=== PATIENT | female | born 1995 | race African-American/Black ===

== ENCOUNTER 2016-08-21 06:09 | Emergency (ER) | payer OTHER, SELFPAY ==
[~2016-08-21 06:09] MED LIST: LOVE1INJ SC; NO HOME MEDS; TYLE325T5 PO; ZONE25CA5 PO
--- NOTE | 2016-08-21 08:35 | EDDOCDS ---
Nurse's Notes [facility] Name: Chica Alcaraz Age: 20 yrs Sex: Female : 1995 Arrival Date: 08/21/2016 Time: 06:09 Bed I3 / M3 Private MD: Diagnosis: Vaginitis, vulvitis and vulvovaginitis in diseases classified elsewhere-bacterial vaginosis Presentation: 08/21 06:16 Presenting complaint: Patient states: frequent urination, white discharge with odor and kc3 itching x 5 days. Adult Sepsis Screening: The patient does not have new or worsening altered mentation. Patient's respiratory rate is less than 22. Systolic blood pressure is greater than 100. Patient has a qSOFA score of 0- Negative Sepsis Screen. Suicide/Homicide risk assessment- the patient denies having any suicidal and/or homicidal ideations and does not present with any other emotional, behavioral or mental health complaints. Status: The patient is a dependent. Transition of care: patient was not received from another setting of care. 06:16 Acuity: AJITH Level 4 kc3 06:16 Method Of Arrival: Walkin/Carried/Asstd kc3 Triage Assessment: 06:18 General: Appears in no apparent distress, comfortable. Pain: Denies pain. HIV screening kc3 NA for this visit Offered previously. : Reports discharge white, urinary frequency vaginal itching. 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 Oral 1 tab once daily 2. 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 No barriers to communication noted, The patient speaks fluent Lao, Speaks appropriately for age. - Family history: Not pertinent. - : The pt / caregiver states he / she is not on anticoagulants. Home medication list is obtained from the patient. - Exposure Risk Screening:: None identified. Screenin:38 Screening information is obtained from the patient. Primary language is Lao. Fall jam1 risk: No risks identified. Assistance ADL's: requires no assistance with activities of daily living. Abuse/DV Screen: The patient / caregiver reports he/she is: not in a situation that causes fear, pain or injury. Nutritional screening: No deficits noted. Exposure Risk Screening: None identified. Advance Directives: Currently, there is no health care proxy. There is no active DNR order. There is no living will. There is no Power of Rn Internship. Advance directive information has not previously been placed in an [facility] medical record. Further advance directive information is declined. home support is adequate. Assessment: 07:40 General: Appears in no apparent distress, well developed, well nourished, well groomed, dls Behavior is cooperative. Awake, alert, oriented. Skin warm and dry. Moves all extremities. Bilateral breath sounds clear. Respirations unlabored. Abdomen soft, non-tender. No apparent distress. The patient / caregiver is instructed regarding the plan of care and ED course. Vital Signs: 06:15 BP 134 / 76; Pulse 95; Resp 18; Temp 99.1(O); Pulse Ox 98% on R/A; Weight 74.84 kg; 3 Height 5 ft. 8 in. (172.72 cm); Pain 0/10; 08:29 BP 140 / 84; Pulse 74; Resp 18; Temp 98.7; Pulse Ox 98% ; Pain 0/10; jam1 06:15 Body Mass Index 25.09 (74.84 kg, 172.72 cm) [facility] Vitals: 06:15 Log In Time: August 21, 2016 at 06:15. [facility] ED Course: 06:12 Patient visited by Navya Magana Reg. hs2 06:12 Patient moved to Waiting hs2 06:18 Triage Initiated kc3 06:34 Patient moved to MTA Wait kc3 07:07 Patient moved to I3 / M3 dls 07:09 Prieto Ventura PA-C is PHCP. ar2 07:10 Steve Diamond MD is Attending Physician. ar2 07:10 Patient visited by Prieto Ventura PA-C. ar2 07:38 Pt greeted and oriented to ED. Patient advised of names of staff involved in care, jam1 location of call sena, wait times and NPO status. Patient has correct armband on for positive identification. Placed in gown. Bed in low position. Call light in reach. Side rails up X 1. Door closed. 08:16 [facility] [place] Agreement was scanned into [employer] and attached to record. mm15 08:26 Patient visited by Caroline Arambula RN. dls 08:26 Mar[facility] [place] Referral Physician. ar2 08:32 No IV's were initiated during this patient's visit. No procedures done that require dls assistance. Point of Care Testing: Urine : 07:24 hCG Reading: Negative; Control Reading: Negative; jam1 Ranges: Order Results: Lab Order: UA; SPEC'M 08/21/16 07:34 Test: APPEARANCE, URINE; Value: CLEAR; Range: CLEAR; Status: F Test: COLOR, URINE; Value: YELLOW; Range: YELLOW; Status: F Test: PH,URINE; Value: 6.0; Range: 5.0-9.0; Units: UNITS; Status: F Test: SPECIFIC GRAVITY URINE AUTO; Value: 1.014; Range: 1.002-1.035; Status: F Test: PROTEIN, URINE AUTO; Value: NEGATIVE; Range: NEGATIVE; Units: mg/dL; Status: F Test: GLUCOSE, URINE (UA) AUTO; Value: NEGATIVE; Range: NEGATIVE; Units: mg/dL; Status: F Test: KETONE, URINE AUTO; Value: NEGATIVE; Range: NEGATIVE; Units: mg/dL; Status: F Test: UROBILINOGEN, URINE AUTO; Value: 0.2; Range: 0.0-2.0; Units: mg/dL; Status: F Test: BILIRUBIN, URINE AUTO; Value: NEGATIVE; Range: NEGATIVE; Status: F Test: NITRITE, URINE AUTO; Value: NEGATIVE; Range: NEGATIVE; Status: F Test: LEUKOCYTE ESTERASE, URINE AUTO; Value: NEGATIVE; Range: NEGATIVE; Status: F Test: BLOOD, URINE BLOOD; Value: NEGATIVE; Range: NEGATIVE; Status: F Test: WBC, URINE AUTO; Value: 15; Range: 0-3; Abnormal: Above high normal; Units: /HPF; Status: F Test: RBC, URINE AUTO; Value: 2; Range: 0-3; Units: /HPF; Status: F Test: BACTERIA, URINE AUTO; Value: NEGATIVE; Range: NEGATIVE; Status: F Test: SQUAMOUS EPITHELIAL CELL UR AU; Value: 2; Range: 0-6; Units: /HPF; Status: F Test: MUCUS, URINE; Value: SMALL; Range: NEGATIVE; Status: F Test: HYALINE CAST, URINE AUTO; Value: 0; Range: 0-1; Units: /LPF; Status: F Lab Order: Wet Prep; SPEC'M 08/21/16 07:34 Test: WET PREP; Value: WET PREP RESULT; Status: F Test: WET PREP; Value: MANY EPITHELIAL CELLS PRESENT; Status: F Test: WET PREP; Value: MANY RBC; Status: F Test: WET PREP; Value: FEW WBC; Status: F Test: WET PREP; Value: FEW CLUE CELLS PRESENT; Status: F Outcome: 08:26 Discharge ordered by Provider. ar2 08:32 The following High Risk Discharge criteria are identified: None. Discharged to home dls ambulatory, with family. Condition: stable. Discharge instructions given to patient, Instructed on discharge instructions, follow up and referral plans. medication usage, Demonstrated understanding of instructions, medications, Pt was receptive of discharge instructions/ teaching. Prescriptions given X 1. No special radiology studies were completed. 08:32 Discharge Assessment: Patient awake, alert and oriented x 3. No cognitive and/or dls functional deficits noted. Patient verbalized understanding of disposition instructions. patient administered narcotics - no. The following High Risk Discharge criteria are identified: None. Discharged to home ambulatory. Property sent home with patient. 08:33 Patient left the ED. dls Signatures: Caroline Arambula, RN RN Priti Lambert, RETAIL MERCHANDISER RETAIL MERCHANDISER jam1 Prieto Ventura PA-C PA-C ar2 Keon Hazel mm15 Chelsea De La Torre RN RN kc3 Navya Magana, Reg Reg hs2 MTDD
--- NOTE | 2016-08-21 08:35 | EDDOCDS ---
Physician Documentation [facility] Name: Chica Alcaraz Age: 20 yrs Sex: Female : 1995 Arrival Date: 08/21/2016 Time: 06:09 Bed I3 / M3 Private MD: Disposition: 08/21/16 08:26 Discharged to Home/Self Care. Impression: Vaginitis, vulvitis and vulvovaginitis in diseases classified elsewhere - bacterial vaginosis. - Condition is Stable. - Discharge Instructions: Bacterial Vaginosis. - Prescriptions for Flagyl 500 mg Oral Tablet - take 1 tablet by ORAL route every 12 hours for 7 days; 14 tablet. - Medication Reconciliation, Local Pharmacy Hours form. - Follow up: ALESSIA Cunningham; When: 4 - 5 days; Reason: Recheck today's complaints, Continuance of care. - Problem is new. - Symptoms are unchanged. Historical: - Allergies: Ibuprofen (Upset stomach); - Home Meds: 1. Oral 1 tab once daily 2. 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 No barriers to communication noted, The patient speaks fluent Vietnamese, Speaks appropriately for age. - Family history: Not pertinent. - : The pt / caregiver states he / she is not on anticoagulants. Home medication list is obtained from the patient. - Exposure Risk Screening:: None identified. 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 8 in. (172.72 cm); Pain 0/10; 08:29 BP 140 / 84; Pulse 74; Resp 18; Temp 98.7; Pulse Ox 98% ; Pain 0/10; jam1 06:15 Body Mass Index 25.09 (74.84 kg, 172.72 cm) 3 MDM: 07:10 UCG by Nursing ordered. ar2 07:12 UA Ordered. EDMS 07:12 Urine Culture Ordered. EDMS 07:14 Set up pelvic ordered. ar2 07:15 Wet Prep Ordered. EDMS 07:15 GC & Chlamydia Amplification Ordered. EDMS 07:52 Financial registration complete. mm15 08:16 COUNTS INCLUDE 234 BEDS AT THE [facility] Payment Agreement was scanned into [employer] and attached to record. mm15 08:17 UA Reviewed. ar2 08:17 Wet Prep Reviewed. ar2 Point of Care Testing: Urine : 07:24 hCG Reading: Negative; Control Reading: Negative; jam1 Ranges: Signatures: Dispatcher [employer] Caroline Brown, RN RN dls Prieto Ventura, SKYE PA-C ar2 Keon Hazel mm15 Chelsea De La Torre,RN RN kc3 The chart was reviewed and I authenticate all verbal orders and agree with the evaluation and treatment provided.Attachments: 08:16 COUNTS INCLUDE 234 BEDS AT THE [facility] Payment Agreement mm15 MTDD
--- NOTE | 2016-08-23 09:35 | EDDOCDS ---
Physician Documentation [facility] Name: Chica Alcaraz Age: 20 yrs Sex: Female : 1995 Arrival Date: 08/21/2016 Time: 06:09 Bed I3 / M3 Private MD: Disposition: 08/21/16 08:26 Discharged to Home/Self Care. Impression: Vaginitis, vulvitis and vulvovaginitis in diseases classified elsewhere - bacterial vaginosis. - Condition is Stable. - Discharge Instructions: Bacterial Vaginosis. - Prescriptions for Flagyl 500 mg Oral Tablet - take 1 tablet by ORAL route every 12 hours for 7 days; 14 tablet. - Medication Reconciliation, Local Pharmacy Hours form. - Follow up: ALESSIA Cunningham; When: 4 - 5 days; Reason: Recheck today's complaints, Continuance of care. - Problem is new. - Symptoms are unchanged. Historical: - Allergies: Ibuprofen (Upset stomach); - Home Meds: 1. Oral 1 tab once daily 2. 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 No barriers to communication noted, The patient speaks fluent Greek, Speaks appropriately for age. - Family history: Not pertinent. - : The pt / caregiver states he / she is not on anticoagulants. Home medication list is obtained from the patient. - Exposure Risk Screening:: None identified. 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 8 in. (172.72 cm); Pain 0/10; 08:29 BP 140 / 84; Pulse 74; Resp 18; Temp 98.7; Pulse Ox 98% ; Pain 0/10; jam1 06:15 Body Mass Index 25.09 (74.84 kg, 172.72 cm) 3 MDM: 07:10 UCG by Nursing ordered. ar2 07:12 UA Ordered. EDMS 07:12 Urine Culture Ordered. EDMS 07:14 Set up pelvic ordered. ar2 07:15 Wet Prep Ordered. EDMS 07:15 GC & Chlamydia Amplification Ordered. EDMS 07:52 Financial registration complete. mm15 08:16 [facility] Payment Agreement was scanned into [employer] and attached to record. mm15 08:17 UA Reviewed. ar2 08:17 Wet Prep Reviewed. ar2 Point of Care Testing: Urine : 07:24 hCG Reading: Negative; Control Reading: Negative; jam1 Ranges: Signatures: Dispatcher [employer] Caroline Brown, RN RN dls Prieto Ventura PA-C PA-C ar2 Keon Hazel mm15 Chelsea De La Torre,RN RN kc3 The chart was reviewed and I authenticate all verbal orders and agree with the evaluation and treatment provided.Attachments: 08:16 [facility] Payment Agreement mm15 Chart Complete MTDD
--- NOTE | 2016-08-23 09:35 | EDDOCDS ---
Nurse's Notes [facility] Name: Chica Alcaraz Age: 20 yrs Sex: Female : 1995 Arrival Date: 08/21/2016 Time: 06:09 Bed I3 / M3 Private MD: Diagnosis: Vaginitis, vulvitis and vulvovaginitis in diseases classified elsewhere-bacterial vaginosis Presentation: 08/21 06:16 Presenting complaint: Patient states: frequent urination, white discharge with odor and kc3 itching x 5 days. Adult Sepsis Screening: The patient does not have new or worsening altered mentation. Patient's respiratory rate is less than 22. Systolic blood pressure is greater than 100. Patient has a qSOFA score of 0- Negative Sepsis Screen. Suicide/Homicide risk assessment- the patient denies having any suicidal and/or homicidal ideations and does not present with any other emotional, behavioral or mental health complaints. Status: The patient is a dependent. Transition of care: patient was not received from another setting of care. 06:16 Acuity: AJITH Level 4 kc3 06:16 Method Of Arrival: Walkin/Carried/Asstd kc3 Triage Assessment: 06:18 General: Appears in no apparent distress, comfortable. Pain: Denies pain. HIV screening kc3 NA for this visit Offered previously. : Reports discharge white, urinary frequency vaginal itching. 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 Oral 1 tab once daily 2. 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 No barriers to communication noted, The patient speaks fluent Lithuanian, Speaks appropriately for age. - Family history: Not pertinent. - : The pt / caregiver states he / she is not on anticoagulants. Home medication list is obtained from the patient. - Exposure Risk Screening:: None identified. Screenin:38 Screening information is obtained from the patient. Primary language is Lithuanian. Fall jam1 risk: No risks identified. Assistance ADL's: requires no assistance with activities of daily living. Abuse/DV Screen: The patient / caregiver reports he/she is: not in a situation that causes fear, pain or injury. Nutritional screening: No deficits noted. Exposure Risk Screening: None identified. Advance Directives: Currently, there is no health care proxy. There is no active DNR order. There is no living will. There is no Power of Manager Android. Advance directive information has not previously been placed in an [facility] medical record. Further advance directive information is declined. home support is adequate. Assessment: 07:40 General: Appears in no apparent distress, well developed, well nourished, well groomed, dls Behavior is cooperative. Awake, alert, oriented. Skin warm and dry. Moves all extremities. Bilateral breath sounds clear. Respirations unlabored. Abdomen soft, non-tender. No apparent distress. The patient / caregiver is instructed regarding the plan of care and ED course. Vital Signs: 06:15 BP 134 / 76; Pulse 95; Resp 18; Temp 99.1(O); Pulse Ox 98% on R/A; Weight 74.84 kg; 3 Height 5 ft. 8 in. (172.72 cm); Pain 0/10; 08:29 BP 140 / 84; Pulse 74; Resp 18; Temp 98.7; Pulse Ox 98% ; Pain 0/10; jam1 06:15 Body Mass Index 25.09 (74.84 kg, 172.72 cm) [facility] Vitals: 06:15 Log In Time: August 21, 2016 at 06:15. [facility] ED Course: 06:12 Patient visited by Navya Magana Reg. hs2 06:12 Patient moved to Waiting hs2 06:18 Triage Initiated kc3 06:34 Patient moved to MTA Wait kc3 07:07 Patient moved to I3 / M3 dls 07:09 Prieto Ventura PA-C is PHCP. ar2 07:10 Steve Diamond MD is Attending Physician. ar2 07:10 Patient visited by Prieto Ventura PA-C. ar2 07:38 Pt greeted and oriented to ED. Patient advised of names of staff involved in care, jam1 location of call sena, wait times and NPO status. Patient has correct armband on for positive identification. Placed in gown. Bed in low position. Call light in reach. Side rails up X 1. Door closed. 08:16 [facility] [place] was scanned into [employer] and attached to record. mm15 08:26 Patient visited by Caroline Arambula RN. dls 08:26 Marisa [facility] is Referral Physician. ar2 08:32 No IV's were initiated during this patient's visit. No procedures done that require dls assistance. Point of Care Testing: Urine : 07:24 hCG Reading: Negative; Control Reading: Negative; jam1 Ranges: Order Results: Lab Order: UA; SPEC'M 08/21/16 07:34 Test: APPEARANCE, URINE; Value: CLEAR; Range: CLEAR; Status: F Test: COLOR, URINE; Value: YELLOW; Range: YELLOW; Status: F Test: PH,URINE; Value: 6.0; Range: 5.0-9.0; Units: UNITS; Status: F Test: SPECIFIC GRAVITY URINE AUTO; Value: 1.014; Range: 1.002-1.035; Status: F Test: PROTEIN, URINE AUTO; Value: NEGATIVE; Range: NEGATIVE; Units: mg/dL; Status: F Test: GLUCOSE, URINE (UA) AUTO; Value: NEGATIVE; Range: NEGATIVE; Units: mg/dL; Status: F Test: KETONE, URINE AUTO; Value: NEGATIVE; Range: NEGATIVE; Units: mg/dL; Status: F Test: UROBILINOGEN, URINE AUTO; Value: 0.2; Range: 0.0-2.0; Units: mg/dL; Status: F Test: BILIRUBIN, URINE AUTO; Value: NEGATIVE; Range: NEGATIVE; Status: F Test: NITRITE, URINE AUTO; Value: NEGATIVE; Range: NEGATIVE; Status: F Test: LEUKOCYTE ESTERASE, URINE AUTO; Value: NEGATIVE; Range: NEGATIVE; Status: F Test: BLOOD, URINE BLOOD; Value: NEGATIVE; Range: NEGATIVE; Status: F Test: WBC, URINE AUTO; Value: 15; Range: 0-3; Abnormal: Above high normal; Units: /HPF; Status: F Test: RBC, URINE AUTO; Value: 2; Range: 0-3; Units: /HPF; Status: F Test: BACTERIA, URINE AUTO; Value: NEGATIVE; Range: NEGATIVE; Status: F Test: SQUAMOUS EPITHELIAL CELL UR AU; Value: 2; Range: 0-6; Units: /HPF; Status: F Test: MUCUS, URINE; Value: SMALL; Range: NEGATIVE; Status: F Test: HYALINE CAST, URINE AUTO; Value: 0; Range: 0-1; Units: /LPF; Status: F Lab Order: Urine Culture; SPEC'M 08/21/16 07:34 Test: URINE CULTURE; Value: <EXTERNAL COMMENT eCWMed> FULL REPORT IN LAB NOTES (eCW and Medent).; Status: F Test: URINE CULTURE; Value: ORGANISM 1: STAPH.AUREUS METHICILLIN RESIS; Status: F Test: URINE CULTURE; Value: STAPH.AUREUS METHICILLIN RESIS; Status: F Test: URINE CULTURE; Value: COLONY COUNT CFU/ml 30,000; Status: F Test: URINE CULTURE; Value: GRAM POS SENSI - VITEK 67; Status: F Test: URINE CULTURE; Value: Method: VIT2; Status: F Test: URINE CULTURE; Value: TETRACYCLINE <=1 S; Status: F Test: URINE CULTURE; Value: PENICILLIN G >=0.5 R; Status: F Test: URINE CULTURE; Value: TRIMETHOPRIM/SULFAMETHOXAZOLE <=10 S; Status: F Test: URINE CULTURE; Value: ERYTHROMYCIN >=8 R; Status: F Test: URINE CULTURE; Value: GENTAMICIN <=0.5 S; Status: F Test: URINE CULTURE; Value: CLINDAMYCIN <=0.25 S; Status: F Test: URINE CULTURE; Value: NITROFURANTOIN <=16 S; Status: F Test: URINE CULTURE; Value: OXACILLIN >=4 R; Status: F Test: URINE CULTURE; Value: VANCOMYCIN <=0.5 S; Status: F Test: URINE CULTURE; Value: LINEZOLID (ZYVOX) 2 S; Status: F Lab Order: Wet Prep; SPEC'M 08/21/16 07:34 Test: WET PREP; Value: WET PREP RESULT; Status: F Test: WET PREP; Value: MANY EPITHELIAL CELLS PRESENT; Status: F Test: WET PREP; Value: MANY RBC; Status: F Test: WET PREP; Value: FEW WBC; Status: F Test: WET PREP; Value: FEW CLUE CELLS PRESENT; Status: F Lab Order: GC & Chlamydia Amplification; SPEC'M 08/21/16 07:34 Test: CHLAMYDIA DNA AMPLIFICATION; Value: POSITIVE; Range: NEGATIVE; Abnormal: Above high normal; Status: F Test: GC DNA AMPLIFICATION; Value: NEGATIVE; Range: NEGATIVE; Status: F Outcome: 08:26 Discharge ordered by Provider. ar2 08:32 The following High Risk Discharge criteria are identified: None. Discharged to home dls ambulatory, with family. Condition: stable. Discharge instructions given to patient, Instructed on discharge instructions, follow up and referral plans. medication usage, Demonstrated understanding of instructions, medications, Pt was receptive of discharge instructions/ teaching. Prescriptions given X 1. No special radiology studies were completed. 08:32 Discharge Assessment: Patient awake, alert and oriented x 3. No cognitive and/or dls functional deficits noted. Patient verbalized understanding of disposition instructions. patient administered narcotics - no. The following High Risk Discharge criteria are identified: None. Discharged to home ambulatory. Property sent home with patient. 08:33 Patient left the ED. dls 14:32 Lab/X-ray follow up: Call received from [facility] that patient is positive for Chlamydia. sal Spoke with provider, Emma Ventura and Rx for Zithromax 1 Gm. po to be called to patient's pharmacy. Patient contacted and requests Brii ramires Boyce - Rx called in and [facility] notified which pharmacy . Signatures: Brenna De Los Santos, RN RN Caroline Grady RN RN Priti Lambert, SIDE DOOR WORKER SIDE DOOR WORKER jam1 Prieto Ventura, PA-C PA-C ar2 Keon Hazel mm15 Chelsea De La TorreRN RN kc3 Navya Magana, Reg Reg hs2 Chart Complete MTDD
--- NOTE | 2016-08-23 09:35 | EDDOCDS ---
Physician Documentation [facility] Name: Chica Alcaraz Age: 20 yrs Sex: Female : 1995 Arrival Date: 08/21/2016 Time: 06:09 Bed I3 / M3 Private MD: Disposition: 08/21/16 08:26 Discharged to Home/Self Care. Impression: Vaginitis, vulvitis and vulvovaginitis in diseases classified elsewhere - bacterial vaginosis. - Condition is Stable. - Discharge Instructions: Bacterial Vaginosis. - Prescriptions for Flagyl 500 mg Oral Tablet - take 1 tablet by ORAL route every 12 hours for 7 days; 14 tablet. - Medication Reconciliation, Local Pharmacy Hours form. - Follow up: ALESSIA Cunningham; When: 4 - 5 days; Reason: Recheck today's complaints, Continuance of care. - Problem is new. - Symptoms are unchanged. Historical: - Allergies: Ibuprofen (Upset stomach); - Home Meds: 1. Oral 1 tab once daily 2. 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 No barriers to communication noted, The patient speaks fluent Macedonian, Speaks appropriately for age. - Family history: Not pertinent. - : The pt / caregiver states he / she is not on anticoagulants. Home medication list is obtained from the patient. - Exposure Risk Screening:: None identified. 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 8 in. (172.72 cm); Pain 0/10; 08:29 BP 140 / 84; Pulse 74; Resp 18; Temp 98.7; Pulse Ox 98% ; Pain 0/10; jam1 06:15 Body Mass Index 25.09 (74.84 kg, 172.72 cm) 3 MDM: 07:10 UCG by Nursing ordered. ar2 07:12 UA Ordered. EDMS 07:12 Urine Culture Ordered. EDMS 07:14 Set up pelvic ordered. ar2 07:15 Wet Prep Ordered. EDMS 07:15 GC & Chlamydia Amplification Ordered. EDMS 07:52 Financial registration complete. mm15 08:16 [facility] Payment Agreement was scanned into [employer] and attached to record. mm15 08:17 UA Reviewed. ar2 08:17 Wet Prep Reviewed. ar2 Point of Care Testing: Urine : 07:24 hCG Reading: Negative; Control Reading: Negative; jam1 Ranges: Signatures: Dispatcher [employer] Caroline Brown, RN RN dls Prieto Ventura PA-C PA-C ar2 Keon Hazel mm15 Chelsea De La Torre,RN RN kc3 The chart was reviewed and I authenticate all verbal orders and agree with the evaluation and treatment provided.Attachments: 08:16 [facility] Payment Agreement mm15 Chart Complete MTDD
--- NOTE | 2016-08-24 10:23 | EDDOCDS ---
Physician Documentation [facility] Name: Chica Alcaraz Age: 20 yrs Sex: Female : 1995 Arrival Date: 08/21/2016 Time: 06:09 Bed I3 / M3 Private MD: Disposition: 08/21/16 08:26 Discharged to Home/Self Care. Impression: Vaginitis, vulvitis and vulvovaginitis in diseases classified elsewhere - bacterial vaginosis. - Condition is Stable. - Discharge Instructions: Bacterial Vaginosis. - Prescriptions for Flagyl 500 mg Oral Tablet - take 1 tablet by ORAL route every 12 hours for 7 days; 14 tablet. - Medication Reconciliation, Local Pharmacy Hours form. - Follow up: ALESSIA Cunningham; When: 4 - 5 days; Reason: Recheck today's complaints, Continuance of care. - Problem is new. - Symptoms are unchanged. Historical: - Allergies: Ibuprofen (Upset stomach); - Home Meds: 1. Oral 1 tab once daily 2. 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 No barriers to communication noted, The patient speaks fluent Kyrgyz, Speaks appropriately for age. - Family history: Not pertinent. - : The pt / caregiver states he / she is not on anticoagulants. Home medication list is obtained from the patient. - Exposure Risk Screening:: None identified. 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 8 in. (172.72 cm); Pain 0/10; 08:29 BP 140 / 84; Pulse 74; Resp 18; Temp 98.7; Pulse Ox 98% ; Pain 0/10; jam1 06:15 Body Mass Index 25.09 (74.84 kg, 172.72 cm) 3 MDM: 07:10 UCG by Nursing ordered. ar2 07:12 UA Ordered. EDMS 07:12 Urine Culture Ordered. EDMS 07:14 Set up pelvic ordered. ar2 07:15 Wet Prep Ordered. EDMS 07:15 GC & Chlamydia Amplification Ordered. EDMS 07:52 Financial registration complete. mm15 08:16 [facility] Payment Agreement was scanned into [employer] and attached to record. mm15 08:17 UA Reviewed. ar2 08:17 Wet Prep Reviewed. ar2 Point of Care Testing: Urine : 07:24 hCG Reading: Negative; Control Reading: Negative; jam1 Ranges: Signatures: Dispatcher [employer] Caroline Brown, RN RN dls Prieto Ventura, SKYE PA-C ar2 Keon Hazel mm15 Chelsea De La Torre,RN RN kc3 The chart was reviewed and I authenticate all verbal orders and agree with the evaluation and treatment provided.Attachments: 08:16 [facility] Payment Agreement mm15 MTDD
--- NOTE | 2016-08-24 10:23 | EDDOCDS ---
Physician Documentation [facility] Name: Chica Alcaraz Age: 20 yrs Sex: Female : 1995 Arrival Date: 08/21/2016 Time: 06:09 Bed I3 / M3 Private MD: Disposition: 08/21/16 08:26 Discharged to Home/Self Care. Impression: Vaginitis, vulvitis and vulvovaginitis in diseases classified elsewhere - bacterial vaginosis. - Condition is Stable. - Discharge Instructions: Bacterial Vaginosis. - Prescriptions for Flagyl 500 mg Oral Tablet - take 1 tablet by ORAL route every 12 hours for 7 days; 14 tablet. - Medication Reconciliation, Local Pharmacy Hours form. - Follow up: ALESSIA Cunningham; When: 4 - 5 days; Reason: Recheck today's complaints, Continuance of care. - Problem is new. - Symptoms are unchanged. Historical: - Allergies: Ibuprofen (Upset stomach); - Home Meds: 1. Oral 1 tab once daily 2. 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 No barriers to communication noted, The patient speaks fluent Pashto, Speaks appropriately for age. - Family history: Not pertinent. - : The pt / caregiver states he / she is not on anticoagulants. Home medication list is obtained from the patient. - Exposure Risk Screening:: None identified. 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 8 in. (172.72 cm); Pain 0/10; 08:29 BP 140 / 84; Pulse 74; Resp 18; Temp 98.7; Pulse Ox 98% ; Pain 0/10; jam1 06:15 Body Mass Index 25.09 (74.84 kg, 172.72 cm) 3 MDM: 07:10 UCG by Nursing ordered. ar2 07:12 UA Ordered. EDMS 07:12 Urine Culture Ordered. EDMS 07:14 Set up pelvic ordered. ar2 07:15 Wet Prep Ordered. EDMS 07:15 GC & Chlamydia Amplification Ordered. EDMS 07:52 Financial registration complete. mm15 08:16 [facility] Payment Agreement was scanned into [email or web address] and attached to record. mm15 08:17 UA Reviewed. ar2 08:17 Wet Prep Reviewed. ar2 Point of Care Testing: Urine : 07:24 hCG Reading: Negative; Control Reading: Negative; jam1 Ranges: Signatures: Dispatcher [employer] Caroline Brown, RN RN dls Prieto Ventura PA-C PA-C ar2 Keon Hazel mm15 Chelsea De La Torre,RN RN kc3 The chart was reviewed and I authenticate all verbal orders and agree with the evaluation and treatment provided.Attachments: 08:16 [facility] Payment Agreement mm15 Chart Complete MTDD
--- NOTE | 2016-08-24 10:23 | EDDOCDS ---
Nurse's Notes [facility] Name: Chica Alcaraz Age: 20 yrs Sex: Female : 1995 Arrival Date: 08/21/2016 Time: 06:09 Bed I3 / M3 Private MD: Diagnosis: Vaginitis, vulvitis and vulvovaginitis in diseases classified elsewhere-bacterial vaginosis Presentation: 08/21 06:16 Presenting complaint: Patient states: frequent urination, white discharge with odor and kc3 itching x 5 days. Adult Sepsis Screening: The patient does not have new or worsening altered mentation. Patient's respiratory rate is less than 22. Systolic blood pressure is greater than 100. Patient has a qSOFA score of 0- Negative Sepsis Screen. Suicide/Homicide risk assessment- the patient denies having any suicidal and/or homicidal ideations and does not present with any other emotional, behavioral or mental health complaints. Status: The patient is a dependent. Transition of care: patient was not received from another setting of care. 06:16 Acuity: AJITH Level 4 kc3 06:16 Method Of Arrival: Walkin/Carried/Asstd kc3 Triage Assessment: 06:18 General: Appears in no apparent distress, comfortable. Pain: Denies pain. HIV screening kc3 NA for this visit Offered previously. : Reports discharge white, urinary frequency vaginal itching. [facility]: 06:15 LMP 06/23/2016 kc3 Historical: - Allergies: Ibuprofen (Upset stomach); - Home Meds: 1. Oral 1 tab once daily 2. 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 No barriers to communication noted, The patient speaks fluent Mongolian, Speaks appropriately for age. - Family history: Not pertinent. - : The pt / caregiver states he / she is not on anticoagulants. Home medication list is obtained from the patient. - Exposure Risk Screening:: None identified. Screenin:38 Screening information is obtained from the patient. Primary language is Mongolian. Fall jam1 risk: No risks identified. Assistance ADL's: requires no assistance with activities of daily living. Abuse/DV Screen: The patient / caregiver reports he/she is: not in a situation that causes fear, pain or injury. Nutritional screening: No deficits noted. Exposure Risk Screening: None identified. Advance Directives: Currently, there is no health care proxy. There is no active DNR order. There is no living will. There is no Power of Senior Statistical Programmer. Advance directive information has not previously been placed in an [facility] medical record. Further advance directive information is declined. home support is adequate. Assessment: 07:40 General: Appears in no apparent distress, well developed, well nourished, well groomed, dls Behavior is cooperative. Awake, alert, oriented. Skin warm and dry. Moves all extremities. Bilateral breath sounds clear. Respirations unlabored. Abdomen soft, non-tender. No apparent distress. The patient / caregiver is instructed regarding the plan of care and ED course. Vital Signs: 06:15 BP 134 / 76; Pulse 95; Resp 18; Temp 99.1(O); Pulse Ox 98% on R/A; Weight 74.84 kg; 3 Height 5 ft. 8 in. (172.72 cm); Pain 0/10; 08:29 BP 140 / 84; Pulse 74; Resp 18; Temp 98.7; Pulse Ox 98% ; Pain 0/10; jam1 06:15 Body Mass Index 25.09 (74.84 kg, 172.72 cm) [facility] Vitals: 06:15 Log In Time: August 21, 2016 at 06:15. [facility] ED Course: 06:12 Patient visited by Navya Magana Reg. hs2 06:12 Patient moved to Waiting hs2 06:18 Triage Initiated kc3 06:34 Patient moved to MTA Wait kc3 07:07 Patient moved to I3 / M3 dls 07:09 Prieto Ventura PA-C is PHCP. ar2 07:10 Steve Diamond MD is Attending Physician. ar2 07:10 Patient visited by Prieto Ventura PA-C. ar2 07:38 Pt greeted and oriented to ED. Patient advised of names of staff involved in care, jam1 location of call sena, wait times and NPO status. Patient has correct armband on for positive identification. Placed in gown. Bed in low position. Call light in reach. Side rails up X 1. Door closed. 08:16 [facility] Payment Agreement was scanned into [employer] and attached to record. mm15 08:26 Patient visited by Caroline Arambula RN. dls 08:26 [facility] is Referral Physician. ar2 08:32 No IV's were initiated during this patient's visit. No procedures done that require dls assistance. Point of Care Testing: Urine : 07:24 hCG Reading: Negative; Control Reading: Negative; jam1 Ranges: Order Results: Lab Order: UA; SPEC'M 08/21/16 07:34 Test: APPEARANCE, URINE; Value: CLEAR; Range: CLEAR; Status: F Test: COLOR, URINE; Value: YELLOW; Range: YELLOW; Status: F Test: PH,URINE; Value: 6.0; Range: 5.0-9.0; Units: UNITS; Status: F Test: SPECIFIC GRAVITY URINE AUTO; Value: 1.014; Range: 1.002-1.035; Status: F Test: PROTEIN, URINE AUTO; Value: NEGATIVE; Range: NEGATIVE; Units: mg/dL; Status: F Test: GLUCOSE, URINE (UA) AUTO; Value: NEGATIVE; Range: NEGATIVE; Units: mg/dL; Status: F Test: KETONE, URINE AUTO; Value: NEGATIVE; Range: NEGATIVE; Units: mg/dL; Status: F Test: UROBILINOGEN, URINE AUTO; Value: 0.2; Range: 0.0-2.0; Units: mg/dL; Status: F Test: BILIRUBIN, URINE AUTO; Value: NEGATIVE; Range: NEGATIVE; Status: F Test: NITRITE, URINE AUTO; Value: NEGATIVE; Range: NEGATIVE; Status: F Test: LEUKOCYTE ESTERASE, URINE AUTO; Value: NEGATIVE; Range: NEGATIVE; Status: F Test: BLOOD, URINE BLOOD; Value: NEGATIVE; Range: NEGATIVE; Status: F Test: WBC, URINE AUTO; Value: 15; Range: 0-3; Abnormal: Above high normal; Units: /HPF; Status: F Test: RBC, URINE AUTO; Value: 2; Range: 0-3; Units: /HPF; Status: F Test: BACTERIA, URINE AUTO; Value: NEGATIVE; Range: NEGATIVE; Status: F Test: SQUAMOUS EPITHELIAL CELL UR AU; Value: 2; Range: 0-6; Units: /HPF; Status: F Test: MUCUS, URINE; Value: SMALL; Range: NEGATIVE; Status: F Test: HYALINE CAST, URINE AUTO; Value: 0; Range: 0-1; Units: /LPF; Status: F Lab Order: Urine Culture; SPEC'M 08/21/16 07:34 Test: URINE CULTURE; Value: <EXTERNAL COMMENT eCWMed> FULL REPORT IN LAB NOTES (eCW and Medent).; Status: F Test: URINE CULTURE; Value: ORGANISM 1: STAPH.AUREUS METHICILLIN RESIS; Status: F Test: URINE CULTURE; Value: STAPH.AUREUS METHICILLIN RESIS; Status: F Test: URINE CULTURE; Value: COLONY COUNT CFU/ml 30,000; Status: F Test: URINE CULTURE; Value: GRAM POS SENSI - VITEK 67; Status: F Test: URINE CULTURE; Value: Method: VIT2; Status: F Test: URINE CULTURE; Value: TETRACYCLINE <=1 S; Status: F Test: URINE CULTURE; Value: PENICILLIN G >=0.5 R; Status: F Test: URINE CULTURE; Value: TRIMETHOPRIM/SULFAMETHOXAZOLE <=10 S; Status: F Test: URINE CULTURE; Value: ERYTHROMYCIN >=8 R; Status: F Test: URINE CULTURE; Value: GENTAMICIN <=0.5 S; Status: F Test: URINE CULTURE; Value: CLINDAMYCIN <=0.25 S; Status: F Test: URINE CULTURE; Value: NITROFURANTOIN <=16 S; Status: F Test: URINE CULTURE; Value: OXACILLIN >=4 R; Status: F Test: URINE CULTURE; Value: VANCOMYCIN <=0.5 S; Status: F Test: URINE CULTURE; Value: LINEZOLID (ZYVOX) 2 S; Status: F Lab Order: Wet Prep; SPEC'M 08/21/16 07:34 Test: WET PREP; Value: WET PREP RESULT; Status: F Test: WET PREP; Value: MANY EPITHELIAL CELLS PRESENT; Status: F Test: WET PREP; Value: MANY RBC; Status: F Test: WET PREP; Value: FEW WBC; Status: F Test: WET PREP; Value: FEW CLUE CELLS PRESENT; Status: F Lab Order: GC & Chlamydia Amplification; SPEC'M 08/21/16 07:34 Test: CHLAMYDIA DNA AMPLIFICATION; Value: POSITIVE; Range: NEGATIVE; Abnormal: Above high normal; Status: F Test: GC DNA AMPLIFICATION; Value: NEGATIVE; Range: NEGATIVE; Status: F Outcome: 08:26 Discharge ordered by Provider. ar2 08:32 The following High Risk Discharge criteria are identified: None. Discharged to home dls ambulatory, with family. Condition: stable. Discharge instructions given to patient, Instructed on discharge instructions, follow up and referral plans. medication usage, Demonstrated understanding of instructions, medications, Pt was receptive of discharge instructions/ teaching. Prescriptions given X 1. No special radiology studies were completed. 08:32 Discharge Assessment: Patient awake, alert and oriented x 3. No cognitive and/or dls functional deficits noted. Patient verbalized understanding of disposition instructions. patient administered narcotics - no. The following High Risk Discharge criteria are identified: None. Discharged to home ambulatory. Property sent home with patient. 08:33 Patient left the ED. dls 14:32 Lab/X-ray follow up: Call received from [facility] that patient is positive for Chlamydia. [facility] Spoke with provider, Emma Ventura and Rx for Zithromax 1 Gm. po to be called to patient's pharmacy. Patient contacted and requests Brii ramires [place] - Rx called in and [facility] notified which pharmacy . Addendum: 08/24/2016 10:21 Narrative: Urine culture results reviewed with Alessandra Miranda and report to be faxed to [facility] PCP at [place]. Signatures: Brenna De Los Santos, RN RN Caroline Grady RN RN dls Murphy, Jane, LOG DECK TENDER LOG DECK TENDER jam1 Prieto Ventura, PA-C PA-C ar2 Keon Hazel mm15 Chelsea De La Torre RN RN kc3 Navya Magana, Reg Reg hs2 Chart Complete MTDD
--- NOTE | 2016-08-24 10:23 | EDDOCDS ---
Physician Documentation [facility] Name: Chica Alcaraz Age: 20 yrs Sex: Female : 1995 Arrival Date: 08/21/2016 Time: 06:09 Bed I3 / M3 Private MD: Disposition: 08/21/16 08:26 Discharged to Home/Self Care. Impression: Vaginitis, vulvitis and vulvovaginitis in diseases classified elsewhere - bacterial vaginosis. - Condition is Stable. - Discharge Instructions: Bacterial Vaginosis. - Prescriptions for Flagyl 500 mg Oral Tablet - take 1 tablet by ORAL route every 12 hours for 7 days; 14 tablet. - Medication Reconciliation, Local Pharmacy Hours form. - Follow up: ALESSIA Cunningham; When: 4 - 5 days; Reason: Recheck today's complaints, Continuance of care. - Problem is new. - Symptoms are unchanged. Historical: - Allergies: Ibuprofen (Upset stomach); - Home Meds: 1. Oral 1 tab once daily 2. 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 No barriers to communication noted, The patient speaks fluent Croatian, Speaks appropriately for age. - Family history: Not pertinent. - : The pt / caregiver states he / she is not on anticoagulants. Home medication list is obtained from the patient. - Exposure Risk Screening:: None identified. 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 8 in. (172.72 cm); Pain 0/10; 08:29 BP 140 / 84; Pulse 74; Resp 18; Temp 98.7; Pulse Ox 98% ; Pain 0/10; jam1 06:15 Body Mass Index 25.09 (74.84 kg, 172.72 cm) 3 MDM: 07:10 UCG by Nursing ordered. ar2 07:12 UA Ordered. EDMS 07:12 Urine Culture Ordered. EDMS 07:14 Set up pelvic ordered. ar2 07:15 Wet Prep Ordered. EDMS 07:15 GC & Chlamydia Amplification Ordered. EDMS 07:52 Financial registration complete. mm15 08:16 [facility] Payment Agreement was scanned into [employer] and attached to record. mm15 08:17 UA Reviewed. ar2 08:17 Wet Prep Reviewed. ar2 Point of Care Testing: Urine : 07:24 hCG Reading: Negative; Control Reading: Negative; jam1 Ranges: Signatures: Dispatcher [employer] Caroline Brown, RN RN dls Prieto Ventura PA-C PA-C ar2 Keon Hazel mm15 Chelsea De La Torre,RN RN kc3 The chart was reviewed and I authenticate all verbal orders and agree with the evaluation and treatment provided.Attachments: 08:16 [facility] Payment Agreement mm15 Chart Complete MTDD
--- NOTE | 2016-08-24 10:23 | EDDOCDS ---
Nurse's Notes [facility] Name: Chica Alcaraz Age: 20 yrs Sex: Female : 1995 Arrival Date: 08/21/2016 Time: 06:09 Bed I3 / M3 Private MD: Diagnosis: Vaginitis, vulvitis and vulvovaginitis in diseases classified elsewhere-bacterial vaginosis Presentation: 08/21 06:16 Presenting complaint: Patient states: frequent urination, white discharge with odor and kc3 itching x 5 days. Adult Sepsis Screening: The patient does not have new or worsening altered mentation. Patient's respiratory rate is less than 22. Systolic blood pressure is greater than 100. Patient has a qSOFA score of 0- Negative Sepsis Screen. Suicide/Homicide risk assessment- the patient denies having any suicidal and/or homicidal ideations and does not present with any other emotional, behavioral or mental health complaints. Status: The patient is a dependent. Transition of care: patient was not received from another setting of care. 06:16 Acuity: AJITH Level 4 kc3 06:16 Method Of Arrival: Walkin/Carried/Asstd kc3 Triage Assessment: 06:18 General: Appears in no apparent distress, comfortable. Pain: Denies pain. HIV screening kc3 NA for this visit Offered previously. : Reports discharge white, urinary frequency vaginal itching. 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 Oral 1 tab once daily 2. 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 No barriers to communication noted, The patient speaks fluent Maori, Speaks appropriately for age. - Family history: Not pertinent. - : The pt / caregiver states he / she is not on anticoagulants. Home medication list is obtained from the patient. - Exposure Risk Screening:: None identified. Screenin:38 Screening information is obtained from the patient. Primary language is Maori. Fall jam1 risk: No risks identified. Assistance ADL's: requires no assistance with activities of daily living. Abuse/DV Screen: The patient / caregiver reports he/she is: not in a situation that causes fear, pain or injury. Nutritional screening: No deficits noted. Exposure Risk Screening: None identified. Advance Directives: Currently, there is no health care proxy. There is no active DNR order. There is no living will. There is no Power of Pelletizer Operator. Advance directive information has not previously been placed in an [facility] medical record. Further advance directive information is declined. home support is adequate. Assessment: 07:40 General: Appears in no apparent distress, well developed, well nourished, well groomed, dls Behavior is cooperative. Awake, alert, oriented. Skin warm and dry. Moves all extremities. Bilateral breath sounds clear. Respirations unlabored. Abdomen soft, non-tender. No apparent distress. The patient / caregiver is instructed regarding the plan of care and ED course. Vital Signs: 06:15 BP 134 / 76; Pulse 95; Resp 18; Temp 99.1(O); Pulse Ox 98% on R/A; Weight 74.84 kg; 3 Height 5 ft. 8 in. (172.72 cm); Pain 0/10; 08:29 BP 140 / 84; Pulse 74; Resp 18; Temp 98.7; Pulse Ox 98% ; Pain 0/10; jam1 06:15 Body Mass Index 25.09 (74.84 kg, 172.72 cm) [facility] Vitals: 06:15 Log In Time: August 21, 2016 at 06:15. [facility] ED Course: 06:12 Patient visited by Navya Magana Reg. hs2 06:12 Patient moved to Waiting hs2 06:18 Triage Initiated kc3 06:34 Patient moved to MTA Wait kc3 07:07 Patient moved to I3 / M3 dls 07:09 Prieto Ventura PA-C is PHCP. ar2 07:10 Steve Diamond MD is Attending Physician. ar2 07:10 Patient visited by Prieto Ventura PA-C. ar2 07:38 Pt greeted and oriented to ED. Patient advised of names of staff involved in care, jam1 location of call sena, wait times and NPO status. Patient has correct armband on for positive identification. Placed in gown. Bed in low position. Call light in reach. Side rails up X 1. Door closed. 08:16 [facility] Payment Agreement was scanned into xTurion and attached to record. mm15 08:26 Patient visited by Caroline Arambula RN. dls 08:26 Marisa [facility] [place] [facility] is Referral Physician. ar2 08:32 No IV's were initiated during this patient's visit. No procedures done that require dls assistance. Point of Care Testing: Urine : 07:24 hCG Reading: Negative; Control Reading: Negative; jam1 Ranges: Order Results: Lab Order: UA; SPEC'M 08/21/16 07:34 Test: APPEARANCE, URINE; Value: CLEAR; Range: CLEAR; Status: F Test: COLOR, URINE; Value: YELLOW; Range: YELLOW; Status: F Test: PH,URINE; Value: 6.0; Range: 5.0-9.0; Units: UNITS; Status: F Test: SPECIFIC GRAVITY URINE AUTO; Value: 1.014; Range: 1.002-1.035; Status: F Test: PROTEIN, URINE AUTO; Value: NEGATIVE; Range: NEGATIVE; Units: mg/dL; Status: F Test: GLUCOSE, URINE (UA) AUTO; Value: NEGATIVE; Range: NEGATIVE; Units: mg/dL; Status: F Test: KETONE, URINE AUTO; Value: NEGATIVE; Range: NEGATIVE; Units: mg/dL; Status: F Test: UROBILINOGEN, URINE AUTO; Value: 0.2; Range: 0.0-2.0; Units: mg/dL; Status: F Test: BILIRUBIN, URINE AUTO; Value: NEGATIVE; Range: NEGATIVE; Status: F Test: NITRITE, URINE AUTO; Value: NEGATIVE; Range: NEGATIVE; Status: F Test: LEUKOCYTE ESTERASE, URINE AUTO; Value: NEGATIVE; Range: NEGATIVE; Status: F Test: BLOOD, URINE BLOOD; Value: NEGATIVE; Range: NEGATIVE; Status: F Test: WBC, URINE AUTO; Value: 15; Range: 0-3; Abnormal: Above high normal; Units: /HPF; Status: F Test: RBC, URINE AUTO; Value: 2; Range: 0-3; Units: /HPF; Status: F Test: BACTERIA, URINE AUTO; Value: NEGATIVE; Range: NEGATIVE; Status: F Test: SQUAMOUS EPITHELIAL CELL UR AU; Value: 2; Range: 0-6; Units: /HPF; Status: F Test: MUCUS, URINE; Value: SMALL; Range: NEGATIVE; Status: F Test: HYALINE CAST, URINE AUTO; Value: 0; Range: 0-1; Units: /LPF; Status: F Lab Order: Urine Culture; SPEC'M 08/21/16 07:34 Test: URINE CULTURE; Value: <EXTERNAL COMMENT eCWMed> FULL REPORT IN LAB NOTES (eCW and Medent).; Status: F Test: URINE CULTURE; Value: ORGANISM 1: STAPH.AUREUS METHICILLIN RESIS; Status: F Test: URINE CULTURE; Value: STAPH.AUREUS METHICILLIN RESIS; Status: F Test: URINE CULTURE; Value: COLONY COUNT CFU/ml 30,000; Status: F Test: URINE CULTURE; Value: GRAM POS SENSI - VITEK 67; Status: F Test: URINE CULTURE; Value: Method: VIT2; Status: F Test: URINE CULTURE; Value: TETRACYCLINE <=1 S; Status: F Test: URINE CULTURE; Value: PENICILLIN G >=0.5 R; Status: F Test: URINE CULTURE; Value: TRIMETHOPRIM/SULFAMETHOXAZOLE <=10 S; Status: F Test: URINE CULTURE; Value: ERYTHROMYCIN >=8 R; Status: F Test: URINE CULTURE; Value: GENTAMICIN <=0.5 S; Status: F Test: URINE CULTURE; Value: CLINDAMYCIN <=0.25 S; Status: F Test: URINE CULTURE; Value: NITROFURANTOIN <=16 S; Status: F Test: URINE CULTURE; Value: OXACILLIN >=4 R; Status: F Test: URINE CULTURE; Value: VANCOMYCIN <=0.5 S; Status: F Test: URINE CULTURE; Value: LINEZOLID (ZYVOX) 2 S; Status: F Lab Order: Wet Prep; SPEC'M 08/21/16 07:34 Test: WET PREP; Value: WET PREP RESULT; Status: F Test: WET PREP; Value: MANY EPITHELIAL CELLS PRESENT; Status: F Test: WET PREP; Value: MANY RBC; Status: F Test: WET PREP; Value: FEW WBC; Status: F Test: WET PREP; Value: FEW CLUE CELLS PRESENT; Status: F Lab Order: GC & Chlamydia Amplification; SPEC'M 08/21/16 07:34 Test: CHLAMYDIA DNA AMPLIFICATION; Value: POSITIVE; Range: NEGATIVE; Abnormal: Above high normal; Status: F Test: GC DNA AMPLIFICATION; Value: NEGATIVE; Range: NEGATIVE; Status: F Outcome: 08:26 Discharge ordered by Provider. ar2 08:32 The following High Risk Discharge criteria are identified: None. Discharged to home dls ambulatory, with family. Condition: stable. Discharge instructions given to patient, Instructed on discharge instructions, follow up and referral plans. medication usage, Demonstrated understanding of instructions, medications, Pt was receptive of discharge instructions/ teaching. Prescriptions given X 1. No special radiology studies were completed. 08:32 Discharge Assessment: Patient awake, alert and oriented x 3. No cognitive and/or dls functional deficits noted. Patient verbalized understanding of disposition instructions. patient administered narcotics - no. The following High Risk Discharge criteria are identified: None. Discharged to home ambulatory. Property sent home with patient. 08:33 Patient left the ED. dls 14:32 Lab/X-ray follow up: Call received from [facility] that patient is positive for Chlamydia. [facility] Spoke with provider, Emma Ventura and Rx for Zithromax 1 Gm. po to be called to patient's pharmacy. Patient contacted and requests Bri[facility] [place] - Rx called in and [facility] notified which pharmacy . Addendum: 08/24/2016 10:21 Narrative: Urine culture results reviewed with Alessandra Miranda and report to be faxed to [facility] PCP at [place]. Signatures: Brenna De Los Santos, RN RN Caroline Grady RN RN dls Murphy, Jane, TIRE DEBEADER TIRE DEBEADER jam1 Prieto Ventura, BOLA-Caren PA-C ar2 Keon Hazel mm15 Chelsea De La Torre RN RN kc3 Navya Magana, Reg Reg hs2 MTDD
--- NOTE | 2016-08-24 10:23 | EDDOCDS ---
Physician Documentation [facility] Name: Chica Alcaraz Age: 20 yrs Sex: Female : 1995 Arrival Date: 08/21/2016 Time: 06:09 Bed I3 / M3 Private MD: Disposition: 08/21/16 08:26 Discharged to Home/Self Care. Impression: Vaginitis, vulvitis and vulvovaginitis in diseases classified elsewhere - bacterial vaginosis. - Condition is Stable. - Discharge Instructions: Bacterial Vaginosis. - Prescriptions for Flagyl 500 mg Oral Tablet - take 1 tablet by ORAL route every 12 hours for 7 days; 14 tablet. - Medication Reconciliation, Local Pharmacy Hours form. - Follow up: ALESSIA Cunningham; When: 4 - 5 days; Reason: Recheck today's complaints, Continuance of care. - Problem is new. - Symptoms are unchanged. Historical: - Allergies: Ibuprofen (Upset stomach); - Home Meds: 1. Oral 1 tab once daily 2. 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 No barriers to communication noted, The patient speaks fluent Croatian, Speaks appropriately for age. - Family history: Not pertinent. - : The pt / caregiver states he / she is not on anticoagulants. Home medication list is obtained from the patient. - Exposure Risk Screening:: None identified. 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 8 in. (172.72 cm); Pain 0/10; 08:29 BP 140 / 84; Pulse 74; Resp 18; Temp 98.7; Pulse Ox 98% ; Pain 0/10; jam1 06:15 Body Mass Index 25.09 (74.84 kg, 172.72 cm) 3 MDM: 07:10 UCG by Nursing ordered. ar2 07:12 UA Ordered. EDMS 07:12 Urine Culture Ordered. EDMS 07:14 Set up pelvic ordered. ar2 07:15 Wet Prep Ordered. EDMS 07:15 GC & Chlamydia Amplification Ordered. EDMS 07:52 Financial registration complete. mm15 08:16 [facility] Payment Agreement was scanned into NXVISION and attached to record. mm15 08:17 UA Reviewed. ar2 08:17 Wet Prep Reviewed. ar2 Point of Care Testing: Urine : 07:24 hCG Reading: Negative; Control Reading: Negative; jam1 Ranges: Signatures: Dispatcher [employer] Caroline Brown, RN RN dls Prieto Ventura, SKYE PA-C ar2 Keon Hazel mm15 Chelsea De La Torre,RN RN kc3 The chart was reviewed and I authenticate all verbal orders and agree with the evaluation and treatment provided.Attachments: 08:16 [facility] Payment Agreement mm15 MTDD
--- NOTE | 2016-08-24 10:33 | EDDOCDS ---
Physician Documentation [facility] Name: Chica Alcaraz Age: 20 yrs Sex: Female : 1995 Arrival Date: 08/21/2016 Time: 06:09 Bed I3 / M3 Private MD: Disposition: 08/21/16 08:26 Discharged to Home/Self Care. Impression: Vaginitis, vulvitis and vulvovaginitis in diseases classified elsewhere - bacterial vaginosis. - Condition is Stable. - Discharge Instructions: Bacterial Vaginosis. - Prescriptions for Flagyl 500 mg Oral Tablet - take 1 tablet by ORAL route every 12 hours for 7 days; 14 tablet. - Medication Reconciliation, Local Pharmacy Hours form. - Follow up: ALESSIA Cunningham; When: 4 - 5 days; Reason: Recheck today's complaints, Continuance of care. - Problem is new. - Symptoms are unchanged. Historical: - Allergies: Ibuprofen (Upset stomach); - Home Meds: 1. Oral 1 tab once daily 2. 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 No barriers to communication noted, The patient speaks fluent Czech, Speaks appropriately for age. - Family history: Not pertinent. - : The pt / caregiver states he / she is not on anticoagulants. Home medication list is obtained from the patient. - Exposure Risk Screening:: None identified. 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 8 in. (172.72 cm); Pain 0/10; 08:29 BP 140 / 84; Pulse 74; Resp 18; Temp 98.7; Pulse Ox 98% ; Pain 0/10; jam1 06:15 Body Mass Index 25.09 (74.84 kg, 172.72 cm) 3 MDM: 07:10 UCG by Nursing ordered. ar2 07:12 UA Ordered. EDMS 07:12 Urine Culture Ordered. EDMS 07:14 Set up pelvic ordered. ar2 07:15 Wet Prep Ordered. EDMS 07:15 GC & Chlamydia Amplification Ordered. EDMS 07:52 Financial registration complete. mm15 08:16 [facility] Payment Agreement was scanned into Qom[employer] and attached to record. mm15 08:17 UA Reviewed. ar2 08:17 Wet Prep Reviewed. ar2 Point of Care Testing: Urine : 07:24 hCG Reading: Negative; Control Reading: Negative; jam1 Ranges: Signatures: Dispatcher [employer] Caroline Brown, RN RN dls Prieto Ventura PA-C PA-C ar2 Keon Hazel mm15 Chelsea De La Torre,RN RN kc3 The chart was reviewed and I authenticate all verbal orders and agree with the evaluation and treatment provided.Attachments: 08:16 [facility] Payment Agreement mm15 Chart Complete MTDD
--- NOTE | 2016-08-24 10:33 | EDDOCDS ---
Physician Documentation [facility] Name: Chica Alcaraz Age: 20 yrs Sex: Female : 1995 Arrival Date: 08/21/2016 Time: 06:09 Bed I3 / M3 Private MD: Disposition: 08/21/16 08:26 Discharged to Home/Self Care. Impression: Vaginitis, vulvitis and vulvovaginitis in diseases classified elsewhere - bacterial vaginosis. - Condition is Stable. - Discharge Instructions: Bacterial Vaginosis. - Prescriptions for Flagyl 500 mg Oral Tablet - take 1 tablet by ORAL route every 12 hours for 7 days; 14 tablet. - Medication Reconciliation, Local Pharmacy Hours form. - Follow up: ALESSIA Cunningham; When: 4 - 5 days; Reason: Recheck today's complaints, Continuance of care. - Problem is new. - Symptoms are unchanged. Historical: - Allergies: Ibuprofen (Upset stomach); - Home Meds: 1. Oral 1 tab once daily 2. 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 No barriers to communication noted, The patient speaks fluent Hebrew, Speaks appropriately for age. - Family history: Not pertinent. - : The pt / caregiver states he / she is not on anticoagulants. Home medication list is obtained from the patient. - Exposure Risk Screening:: None identified. 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 8 in. (172.72 cm); Pain 0/10; 08:29 BP 140 / 84; Pulse 74; Resp 18; Temp 98.7; Pulse Ox 98% ; Pain 0/10; jam1 06:15 Body Mass Index 25.09 (74.84 kg, 172.72 cm) 3 MDM: 07:10 UCG by Nursing ordered. ar2 07:12 UA Ordered. EDMS 07:12 Urine Culture Ordered. EDMS 07:14 Set up pelvic ordered. ar2 07:15 Wet Prep Ordered. EDMS 07:15 GC & Chlamydia Amplification Ordered. EDMS 07:52 Financial registration complete. mm15 08:16 [facility] Payment Agreement was scanned into Snappy shuttle and attached to record. mm15 08:17 UA Reviewed. ar2 08:17 Wet Prep Reviewed. ar2 Point of Care Testing: Urine : 07:24 hCG Reading: Negative; Control Reading: Negative; jam1 Ranges: Signatures: Dispatcher [employer] Caroline Brown, RN RN dls Prieto Ventura PA-C PA-C ar2 Keon Hazel mm15 Chelsea De La Torre,RN RN kc3 The chart was reviewed and I authenticate all verbal orders and agree with the evaluation and treatment provided.Attachments: 08:16 [facility] Payment Agreement mm15 Chart Complete MTDD
--- NOTE | 2016-08-24 10:33 | EDDOCDS ---
Nurse's Notes [facility] Name: Chica Alcaraz Age: 20 yrs Sex: Female : 1995 Arrival Date: 08/21/2016 Time: 06:09 Bed I3 / M3 Private MD: Diagnosis: Vaginitis, vulvitis and vulvovaginitis in diseases classified elsewhere-bacterial vaginosis Presentation: 08/21 06:16 Presenting complaint: Patient states: frequent urination, white discharge with odor and kc3 itching x 5 days. Adult Sepsis Screening: The patient does not have new or worsening altered mentation. Patient's respiratory rate is less than 22. Systolic blood pressure is greater than 100. Patient has a qSOFA score of 0- Negative Sepsis Screen. Suicide/Homicide risk assessment- the patient denies having any suicidal and/or homicidal ideations and does not present with any other emotional, behavioral or mental health complaints. Status: The patient is a dependent. Transition of care: patient was not received from another setting of care. 06:16 Acuity: AJITH Level 4 kc3 06:16 Method Of Arrival: Walkin/Carried/Asstd kc3 Triage Assessment: 06:18 General: Appears in no apparent distress, comfortable. Pain: Denies pain. HIV screening kc3 NA for this visit Offered previously. : Reports discharge white, urinary frequency vaginal itching. 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 Oral 1 tab once daily 2. 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 No barriers to communication noted, The patient speaks fluent Serbian, Speaks appropriately for age. - Family history: Not pertinent. - : The pt / caregiver states he / she is not on anticoagulants. Home medication list is obtained from the patient. - Exposure Risk Screening:: None identified. Screenin:38 Screening information is obtained from the patient. Primary language is Serbian. Fall jam1 risk: No risks identified. Assistance ADL's: requires no assistance with activities of daily living. Abuse/DV Screen: The patient / caregiver reports he/she is: not in a situation that causes fear, pain or injury. Nutritional screening: No deficits noted. Exposure Risk Screening: None identified. Advance Directives: Currently, there is no health care proxy. There is no active DNR order. There is no living will. There is no Power of Certified Low Vision Therapist. Advance directive information has not previously been placed in an [facility] medical record. Further advance directive information is declined. home support is adequate. Assessment: 07:40 General: Appears in no apparent distress, well developed, well nourished, well groomed, dls Behavior is cooperative. Awake, alert, oriented. Skin warm and dry. Moves all extremities. Bilateral breath sounds clear. Respirations unlabored. Abdomen soft, non-tender. No apparent distress. The patient / caregiver is instructed regarding the plan of care and ED course. Vital Signs: 06:15 BP 134 / 76; Pulse 95; Resp 18; Temp 99.1(O); Pulse Ox 98% on R/A; Weight 74.84 kg; 3 Height 5 ft. 8 in. (172.72 cm); Pain 0/10; 08:29 BP 140 / 84; Pulse 74; Resp 18; Temp 98.7; Pulse Ox 98% ; Pain 0/10; jam1 06:15 Body Mass Index 25.09 (74.84 kg, 172.72 cm) [facility] Vitals: 06:15 Log In Time: August 21, 2016 at 06:15. [facility] ED Course: 06:12 Patient visited by Navya Magana Reg. hs2 06:12 Patient moved to Waiting hs2 06:18 Triage Initiated kc3 06:34 Patient moved to MTA Wait kc3 07:07 Patient moved to I3 / M3 dls 07:09 Prieto Ventura PA-C is PHCP. ar2 07:10 Steve Diamond MD is Attending Physician. ar2 07:10 Patient visited by Prieto Ventura PA-C. ar2 07:38 Pt greeted and oriented to ED. Patient advised of names of staff involved in care, jam1 location of call sena, wait times and NPO status. Patient has correct armband on for positive identification. Placed in gown. Bed in low position. Call light in reach. Side rails up X 1. Door closed. 08:16 [facility] Payment Agreement was scanned into [employer] and attached to record. mm15 08:26 Patient visited by Caroline Arambula RN. dls 08:26 Marisa [facility] is Referral Physician. ar2 08:32 No IV's were initiated during this patient's visit. No procedures done that require dls assistance. Point of Care Testing: Urine : 07:24 hCG Reading: Negative; Control Reading: Negative; jam1 Ranges: Order Results: Lab Order: UA; SPEC'M 08/21/16 07:34 Test: APPEARANCE, URINE; Value: CLEAR; Range: CLEAR; Status: F Test: COLOR, URINE; Value: YELLOW; Range: YELLOW; Status: F Test: PH,URINE; Value: 6.0; Range: 5.0-9.0; Units: UNITS; Status: F Test: SPECIFIC GRAVITY URINE AUTO; Value: 1.014; Range: 1.002-1.035; Status: F Test: PROTEIN, URINE AUTO; Value: NEGATIVE; Range: NEGATIVE; Units: mg/dL; Status: F Test: GLUCOSE, URINE (UA) AUTO; Value: NEGATIVE; Range: NEGATIVE; Units: mg/dL; Status: F Test: KETONE, URINE AUTO; Value: NEGATIVE; Range: NEGATIVE; Units: mg/dL; Status: F Test: UROBILINOGEN, URINE AUTO; Value: 0.2; Range: 0.0-2.0; Units: mg/dL; Status: F Test: BILIRUBIN, URINE AUTO; Value: NEGATIVE; Range: NEGATIVE; Status: F Test: NITRITE, URINE AUTO; Value: NEGATIVE; Range: NEGATIVE; Status: F Test: LEUKOCYTE ESTERASE, URINE AUTO; Value: NEGATIVE; Range: NEGATIVE; Status: F Test: BLOOD, URINE BLOOD; Value: NEGATIVE; Range: NEGATIVE; Status: F Test: WBC, URINE AUTO; Value: 15; Range: 0-3; Abnormal: Above high normal; Units: /HPF; Status: F Test: RBC, URINE AUTO; Value: 2; Range: 0-3; Units: /HPF; Status: F Test: BACTERIA, URINE AUTO; Value: NEGATIVE; Range: NEGATIVE; Status: F Test: SQUAMOUS EPITHELIAL CELL UR AU; Value: 2; Range: 0-6; Units: /HPF; Status: F Test: MUCUS, URINE; Value: SMALL; Range: NEGATIVE; Status: F Test: HYALINE CAST, URINE AUTO; Value: 0; Range: 0-1; Units: /LPF; Status: F Lab Order: Urine Culture; SPEC'M 08/21/16 07:34 Test: URINE CULTURE; Value: <EXTERNAL COMMENT eCWMed> FULL REPORT IN LAB NOTES (eCW and Medent).; Status: F Test: URINE CULTURE; Value: ORGANISM 1: STAPH.AUREUS METHICILLIN RESIS; Status: F Test: URINE CULTURE; Value: STAPH.AUREUS METHICILLIN RESIS; Status: F Test: URINE CULTURE; Value: COLONY COUNT CFU/ml 30,000; Status: F Test: URINE CULTURE; Value: GRAM POS SENSI - VITEK 67; Status: F Test: URINE CULTURE; Value: Method: VIT2; Status: F Test: URINE CULTURE; Value: TETRACYCLINE <=1 S; Status: F Test: URINE CULTURE; Value: PENICILLIN G >=0.5 R; Status: F Test: URINE CULTURE; Value: TRIMETHOPRIM/SULFAMETHOXAZOLE <=10 S; Status: F Test: URINE CULTURE; Value: ERYTHROMYCIN >=8 R; Status: F Test: URINE CULTURE; Value: GENTAMICIN <=0.5 S; Status: F Test: URINE CULTURE; Value: CLINDAMYCIN <=0.25 S; Status: F Test: URINE CULTURE; Value: NITROFURANTOIN <=16 S; Status: F Test: URINE CULTURE; Value: OXACILLIN >=4 R; Status: F Test: URINE CULTURE; Value: VANCOMYCIN <=0.5 S; Status: F Test: URINE CULTURE; Value: LINEZOLID (ZYVOX) 2 S; Status: F Lab Order: Wet Prep; SPEC'M 08/21/16 07:34 Test: WET PREP; Value: WET PREP RESULT; Status: F Test: WET PREP; Value: MANY EPITHELIAL CELLS PRESENT; Status: F Test: WET PREP; Value: MANY RBC; Status: F Test: WET PREP; Value: FEW WBC; Status: F Test: WET PREP; Value: FEW CLUE CELLS PRESENT; Status: F Lab Order: GC & Chlamydia Amplification; SPEC'M 08/21/16 07:34 Test: CHLAMYDIA DNA AMPLIFICATION; Value: POSITIVE; Range: NEGATIVE; Abnormal: Above high normal; Status: F Test: GC DNA AMPLIFICATION; Value: NEGATIVE; Range: NEGATIVE; Status: F Outcome: 08:26 Discharge ordered by Provider. ar2 08:32 The following High Risk Discharge criteria are identified: None. Discharged to home dls ambulatory, with family. Condition: stable. Discharge instructions given to patient, Instructed on discharge instructions, follow up and referral plans. medication usage, Demonstrated understanding of instructions, medications, Pt was receptive of discharge instructions/ teaching. Prescriptions given X 1. No special radiology studies were completed. 08:32 Discharge Assessment: Patient awake, alert and oriented x 3. No cognitive and/or dls functional deficits noted. Patient verbalized understanding of disposition instructions. patient administered narcotics - no. The following High Risk Discharge criteria are identified: None. Discharged to home ambulatory. Property sent home with patient. 08:33 Patient left the ED. dls 14:32 Lab/X-ray follow up: Call received from [facility] that patient is positive for Chlamydia. [facility] Spoke with provider, Emma Ventura and Rx for Zithromax 1 Gm. po to be called to patient's pharmacy. Patient contacted and requests Brii ramires [place] - Rx called in and [facility] notified which pharmacy . Addendum: 08/24/2016 10:21 Narrative: Urine culture results reviewed with Alessandra Miranda and report to be faxed to [facility] PCP at [place]. Signatures: Brenna De Los Santos, RN RN Caroline Grady RN RN dls Murphy, Jane, CLIENT ONBOARDING ANALYST CLIENT ONBOARDING ANALYST jam1 Prieto Ventura, PA-C PA-C ar2 Keon Hazel mm15 Chelsea De La Torre RN RN kc3 Navya Magana, Reg Reg hs2 Chart Complete MTDD
== END 2016-08-21 08:33 | disposition home or self-care (01) ==
LOC: M ED 06:09
DX: N76.0 Acute vaginitis (principal); R56.9 Unspecified convulsions; I45.6 Pre-excitation syndrome; Z79.899 Other long term (current) drug therapy; Z88.6 Allergy status to analgesic agent

== ENCOUNTER → 2016-09-13 | Outpatient (REF) | LOC: M LAB 15:21 | PROVIDERS: ATTEND Nurse Practitioner Adult Health | DX: Z02.89 Encounter for other administrative examinations (principal) ==

== ENCOUNTER 2016-10-06 15:52 | Emergency (ER) | payer MEDICAID, OTHER, SELFPAY ==
[~2016-10-06] VITALS: Ht 172.7 cm; Wt 82.1 kg
[2016-10-06] MEDS ORDERED: SOTA80TA PO (16:06)
[2016-10-06 17:00] LABS: BASO % 0.2 % (0.0-1.0); EOS # 0.1 K/mm3 (0.0-0.50); EOS % 1.3 % (0.0-3.0); LARGE UNSTAINED CELL # 0.2 K/mm3 (0.0-0.4); LARGE UNSTAINED CELL % 1.9 % (0.0-4.0); LYMPH # 3.3 K/mm3 (1.5-6.5); LYMPH % 35.7 % (24.0-44.0); MEAN CORPUSCULAR HEMOGLOBIN 31.5 pg (27.0-33.0); MEAN CORPUSCULAR HGB CONC 32.3 g/dl (32.0-36.5); MEAN CORPUSCULAR VOLUME 97.7 fl (80.0-96.0); MONO # 0.3 K/mm3 (0.0-0.8); MONO % 3.5 % (0.0-5.0); NEUTROPHILS # 5.3 K/mm3 (1.8-7.7); NEUTROPHILS % 57.5 % (36.0-66.0); PLATELET COUNT, AUTOMATED 225 k/mm3 (150-450); WHITE BLOOD COUNT 9.2 K/mm3 (4.0-10.0)
[2016-10-06 18:05] LABS: CONTROL LINE HCG INT CTR LINE PRESENT
[2016-10-06 18:12] LABS: ANION GAP 6 MEQ/L (8-16); BLOOD UREA NITROGEN 7 MG/DL (7-18); CALCIUM LEVEL 8.6 MG/DL (8.5-10.1); CARBON DIOXIDE LEVEL 26 MEQ/L (21-32); CHLORIDE LEVEL 111 MEQ/L (98-107); GLUCOSE, FASTING 79 MG/DL (70-105); POTASSIUM SERUM 3.4 MEQ/L (3.5-5.1); SODIUM LEVEL 143 MEQ/L (136-145)
[2016-10-06 19:20] VITALS: BP 127/76
--- NOTE | 2016-10-08 09:05 | ECGEPIP ---
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
[2016-11-14] MEDS ORDERED: AMBI5TAB PO (08:57)
== END 2016-10-06 19:24 | disposition home or self-care (01) ==
LOC: M ED 16:30
DX: R55 Syncope and collapse (principal)

== ENCOUNTER 2016-10-21 13:55 | Emergency (ER) | payer MEDICAID, OTHER ==
[~2016-10-21] VITALS: Ht 172.7 cm; Wt 81.6 kg
[~2016-10-21 13:55] MED LIST changes: +SOTA80TA PO
[2016-10-21 13:56] VITALS: BP 134/79
[2016-10-21] MEDS ORDERED: BACITRACIN OINT 30GM TOP SCH (14:15)
== END 2016-10-21 14:43 | disposition home or self-care (01) ==
LOC: M ED 14:42
DX: S91.112A Laceration without foreign body of left great toe without damage to nail, initial encounter (principal); X58.XXXA Exposure to other specified factors, initial encounter; Y92.89 Other specified places as the place of occurrence of the external cause; Y93.89 Activity, other specified; Y99.8 Other external cause status; Z88.8 Allergy status to other drugs, medicaments and biological substances

== ENCOUNTER 2016-10-27 08:18 | Emergency (ER) | payer MEDICAID ==
[2016-10-27] MEDS ORDERED: NS 1,000 ML IV ONE (09:00)
[2016-10-27] MEDS ORDERED: PANTOPRAZOLE 40MG INJ (PROTONIX) (C9113) IV ONE (09:00)
[2016-10-27] MEDS ORDERED: ONDANSETRON 4MG/2ML VIAL (J2405) IV ONE (09:00)
[2016-10-27 09:21] LABS: BASO % 0.2 % (0.0-1.0); EOS % 0.8 % (0.0-3.0); LARGE UNSTAINED CELL # 0.1 K/mm3 (0.0-0.4); LARGE UNSTAINED CELL % 3.6 % (0.0-4.0); LYMPH # 1.1 K/mm3 (1.5-6.5); LYMPH % 30.3 % (24.0-44.0); MEAN CORPUSCULAR HGB CONC 33.3 g/dl (32.0-36.5); MEAN CORPUSCULAR VOLUME 99.2 fl (80.0-96.0); MONO # 0.2 K/mm3 (0.0-0.8); MONO % 5.7 % (0.0-5.0); NEUTROPHILS # 2.2 K/mm3 (1.8-7.7); NEUTROPHILS % 59.4 % (36.0-66.0); PLATELET COUNT, AUTOMATED 235 k/mm3 (150-450); RED CELL DISTRIBUTION WIDTH 12.2 % (11.5-14.5); WHITE BLOOD COUNT 3.8 K/mm3 (4.0-10.0)
[2016-10-27 09:31] LABS: ALBUMIN 3.2 GM/DL (3.2-5.2); ALBUMIN/GLOBULIN RATIO 0.78 (1.00-1.93); ALKALINE PHOSPHATASE 62 U/L (45-117); ALT/SGPT 24 U/L (12-78); ANION GAP 12 MEQ/L (8-16); AST/SGOT 15 U/L (15-37); BILIRUBIN,DIRECT 0.1 MG/DL (0.0-0.2); BILIRUBIN,TOTAL 0.4 MG/DL (0.2-1.0); BLOOD UREA NITROGEN 10 MG/DL (7-18); CARBON DIOXIDE LEVEL 22 MEQ/L (21-32); CHLORIDE LEVEL 105 MEQ/L (98-107); CREATININE FOR GFR 0.77 MG/DL (0.55-1.02); GLUCOSE, FASTING 79 MG/DL (70-105); POTASSIUM SERUM 3.2 MEQ/L (3.5-5.1); SODIUM LEVEL 139 MEQ/L (136-145); TOTAL PROTEIN 7.3 GM/DL (6.4-8.2)
[2016-10-27 10:41] LABS: MAGNESIUM LEVEL 1.9 MG/DL (1.8-2.4)
[2016-10-27] MEDS ORDERED: GI COCKTAIL 50ML BTL(HYOSCYAMINE/MAALOX/LIDOCAINE VISCOUS)(1:3:1) PO ONE (10:45)
[2016-10-27 10:52] LABS: CONTROL LINE HCG INT CTR LINE PRESENT
[2016-10-27 10:57] VITALS: BP 116/65
--- NOTE | 2016-10-27 11:08 | ECGEPIP ---
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
--- NOTE | 2016-10-27 11:12 | REP ---
CHEST, SINGLE VIEW: COMPARISON: 04/01/2016. There is no evidence of acute infiltrate. No pleural effusion is seen. The heart is normal in size. The mediastinal silhouette is unremarkable. The visualized osseous structures are intact. IMPRESSION: No acute pulmonary disease. Signed by John Pollock MD 10/27/2016 05:17 P
[2016-10-27] MEDS ORDERED: PERC5TAB6 PO (11:14)
[2016-10-27] MEDS ORDERED: ZOFR4TAB3 PO (11:14)
== END 2016-10-27 11:54 | disposition home or self-care (01) ==
LOC: EDBD 08:18 → M ED 10:36
DX: R07.9 Chest pain, unspecified (principal); K85.90 Acute pancreatitis without necrosis or infection, unspecified; R11.2 Nausea with vomiting, unspecified
CPT/HCPCS: 71010; 80048; 80076; 82550; 82553; 83690; 83735; 83880; 84703; 85025; 93005; 93041; 94760; 96361; 96374; 96375; 99284; C9113; J2405

== ENCOUNTER 2016-11-06 17:31 | Observation (INO) | payer MEDICAID ==
[~2016-11-06] VITALS: Ht 172.7 cm; Wt 83.4 kg
[~2016-11-06 17:31] MED LIST changes: +PERC5TAB6 PO; +ZOFR4TAB3 PO
[2016-11-06 19:08] LABS: MEAN CORPUSCULAR HGB CONC 33.1 g/dl (32.0-36.5); MEAN CORPUSCULAR VOLUME 96.8 fl (80.0-96.0); RED CELL DISTRIBUTION WIDTH 12.3 % (11.5-14.5); WHITE BLOOD COUNT 8.2 K/mm3 (4.0-10.0)
--- NOTE | 2016-11-06 19:20 | REP ---
Clinical: Chest pain. Technique: PA frontal chest x-ray. Comparison: 10/27/2016. Findings: The stent and cardiac silhouette normal. Lung bautista clear. No focal consolidation, effusion, or pneumothorax. Skeletal structures are intact. Impression: Normal frontal chest x-ray. Signed by David Prasad MD 11/06/2016 07:11 P
[2016-11-06 19:37] LABS: CONTROL LINE HCG INT CTR LINE PRESENT
[2016-11-06 19:39] LABS: METHADONE URINE NEGATIVE (NEGATIVE)
[2016-11-06 19:45] LABS: ALBUMIN 3.3 GM/DL (3.2-5.2); ALBUMIN/GLOBULIN RATIO 0.85 (1.00-1.93); ALKALINE PHOSPHATASE 83 U/L (45-117); ALT/SGPT 31 U/L (12-78); ANION GAP 8 MEQ/L (8-16); AST/SGOT 19 U/L (15-37); BILIRUBIN,DIRECT < 0.1 MG/DL (0.0-0.2); BILIRUBIN,TOTAL 0.1 MG/DL (0.2-1.0); BLOOD UREA NITROGEN 12 MG/DL (7-18); CALCIUM LEVEL 8.3 MG/DL (8.5-10.1); CARBON DIOXIDE LEVEL 27 MEQ/L (21-32); CHLORIDE LEVEL 107 MEQ/L (98-107); CREATININE FOR GFR 0.89 MG/DL (0.55-1.02); GLUCOSE, FASTING 87 MG/DL (70-105); POTASSIUM SERUM 4.1 MEQ/L (3.5-5.1); SODIUM LEVEL 142 MEQ/L (136-145); TOTAL PROTEIN 7.2 GM/DL (6.4-8.2)
[2016-11-07] VITALS (7 sets, daily range): BP systolic 103–116; BP diastolic 50–67
[2016-11-07] MEDS ORDERED: ONDANSETRON 4 MG TAB (S0181) PO PRN (00:15)
[2016-11-07] MEDS ORDERED: ONDANSETRON 4MG/2ML VIAL (J2405) IV PRN (00:15)
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
--- NOTE | 2016-11-07 06:46 | ECGEPIP ---
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
[2016-11-07] MEDS: ACETAMINOPHEN TAB 650MG DOSE (2X325MG) PO PRN (12:35)
--- NOTE | 2016-11-07 14:10 | ECGEPIP ---
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
--- NOTE | 2016-11-07 14:18 | ECGEPIP ---
Stationary ECG Study [facility] Test Date: 2016-11-07 Pat Name: PALMA RODGERS Department: Room: [place] [address] Gender: F Benefits Assistant: srinivasan : 1995 Requested By: SUKUMAR SUAREZ Order Number: [id number] Reading MD: Julissa Gonzales Measurements Intervals [place] Rate: 73 P: [place]: 0 QRS: 22 QRSD: 146 T: -39 QT: 431 QTc: 477 Interpretive Statements SHORT [place] LEFT BUNDLE BRANCH BLOCK DELTA WAVES WPW TYPE B Electronically Signed On 11-07-2016 14:17:45 EDT by Julissa Gonzales
--- NOTE | 2016-11-07 22:50 | CR ---
DATE OF CONSULTATION: 11/07/2016 REFERRING PHYSICIAN: Dr. Moise INDICATION: Wuosz-Whvgmowhc-Qjfkc (WPW) syndrome, suicidal attempt with sotalol. I was asked by Dr. Moise to see Ms. Alcaraz. She is a 20-year-old -Faroese female who has a longstanding history of WPW syndrome. She is followed regularly by her inspector packager, Dr. Baldo Eid . She reportedly had two ablations earlier this year, one in June and one in August, and she has been chronically on sotalol to prevent episodes of supraventricular tachycardia (SVT). She attempted suicide on 11/04/2016. She took four 80 mg tablets of sotalol and excessive amount of alcohol. She eventually came to the hospital 2 days later. The presenting ECG revealed sinus rhythm with delta wave and WPW type B pattern with QT interval, approximately 475 milliseconds, corrected for heart rate. This is actually close to her baseline. She has been kept in the emergency room overnight and monitored, and there were no arrhythmias. A followup ECG earlier today is essentially unchanged. The patient besides feeling depressed has no other complaints. PAST MEDICAL HISTORY: Positive for WPW with a history of ablation as above. Seizure disorder. Depression, anxiety and possibly bipolar disorder. OUTPATIENT MEDICATIONS: Not totally clear what the patient actually takes. She tells me that as of lately, she has not been taking any medications, but it appears that she probably has sotalol 80 mg twice a day at her baseline. She also used to take various antiseizure, antidepressant medications. ALLERGIES: Listed to IBUPROFEN. SURGICAL HISTORY: Negative other than ablations for Vtlgs-Ydihefevi-Wovek syndrome. FAMILY HISTORY: Positive for coronary artery disease, seizure disorder and bipolar disorder. SOCIAL HISTORY: Patient is currently living with a friend. She delivered a baby 5 months ago and reports worsened depression since. There is occasional smoking. She does have alcohol binges. She denied to me any history of IV drug use. REVIEW OF SYSTEMS: There is no recent fever, chills. No nausea, no vomiting. She had no sensation of palpitations, syncope or near syncope. No abdominal pain. No history of bleeding. No history of seizure disorder. Denies any recent changes in her weight other than normal change after delivery of her child. There is no history of recent syncope, even though she reports that she has had frequent episodes of passing out in the last several months. She believes that the last one was at least 3 weeks ago or possibly even longer. PHYSICAL EXAMINATION: Ms. Alcaraz is a young -Faroese female. She is completely alert and oriented and appropriate. I do not appreciate any distress, and she does not appear depressed on first impression. Blood pressure 114/60, heart rate in 80s. Afebrile. Saturation 97% on room air. Jugular venous pressure (JVP) is not elevated. I do not appreciate carotid bruit. Lungs are clear to auscultation with good air movement. Heart exam reveals regular rhythm without gallop, rub or murmur. Abdomen is soft. No tenderness, rebound tenderness. No peripheral edema. Good peripheral pulses. I did not appreciate any abnormalities on neurologic exam. LABORATORY: Her CBC reveals WBC count 8.2, hemoglobin 12.7, hematocrit 38 and platelet count 276,000. Normal basic metabolic panel. She had two sets of cardiac enzymes that have been negative. TSH 1.19. HCG was negative. Toxicology screen was negative for salicylates and Tylenol and also for opiates, methadone, barbiturates, phencyclidine, amphetamines, benzodiazepines, cocaine, cannabis and alcohol level was less than 0.03. ECG as per history of present illness. The chest x-ray was unremarkable. ASSESSMENT AND PLAN: Ms. Alcaraz is a 20-year-old female with longstanding history of Dhjok-Fusjhstfp-Ftaav syndrome, and I assume history of supraventricular tachycardia. She has a history of two ablations earlier this year. Based on appearance of her EKG, it is likely that they were not successful. She presented with suicidal attempt with combination of alcohol and sotalol. Sotalol is not a very long-acting substance, and at this point, it is effectively out of her system. Her QT interval is adequate for the width of QRS complex. In my opinion, from cardiac perspective, she can return to psychiatric care or non-monitor bed with relatively low risk of arrhythmic event. It is no higher than at her baseline. I think that the risk attributed to her recent sotalol ingestion has essentially resolved. As far as the long-term management is concerned, it remains with her poll clerk, Dr. Eid I am going to request his records. Thank you for this consultation.
[2016-11-08] MEDS: ACETAMINOPHEN TAB 650MG DOSE (2X325MG) PO PRN ×2 (00:42→08:07)
[2016-11-08 06:00] VITALS: BP 121/70
[2016-11-08 06:26] LABS: BASO % 0.4 % (0.0-1.0); EOS # 0.1 K/mm3 (0.0-0.50); EOS % 1.7 % (0.0-3.0); LARGE UNSTAINED CELL # 0.1 K/mm3 (0.0-0.4); LARGE UNSTAINED CELL % 1.5 % (0.0-4.0); LYMPH # 2.8 K/mm3 (1.5-6.5); MEAN CORPUSCULAR HEMOGLOBIN 32.1 pg (27.0-33.0); MEAN CORPUSCULAR HGB CONC 32.8 g/dl (32.0-36.5); MEAN CORPUSCULAR VOLUME 97.9 fl (80.0-96.0); MONO # 0.4 K/mm3 (0.0-0.8); MONO % 5.5 % (0.0-5.0); NEUTROPHILS # 3.4 K/mm3 (1.8-7.7); NEUTROPHILS % 50.9 % (36.0-66.0); PLATELET COUNT, AUTOMATED 266 k/mm3 (150-450); RED CELL DISTRIBUTION WIDTH 12.3 % (11.5-14.5); WHITE BLOOD COUNT 6.7 K/mm3 (4.0-10.0)
[2016-11-08 06:51] LABS: ALBUMIN 2.9 GM/DL (3.2-5.2); ALBUMIN/GLOBULIN RATIO 0.74 (1.00-1.93); ALKALINE PHOSPHATASE 73 U/L (45-117); ALT/SGPT 27 U/L (12-78); ANION GAP 4 MEQ/L (8-16); AST/SGOT 16 U/L (15-37); BILIRUBIN,TOTAL 0.3 MG/DL (0.2-1.0); BLOOD UREA NITROGEN 8 MG/DL (7-18); CALCIUM LEVEL 8.3 MG/DL (8.5-10.1); CARBON DIOXIDE LEVEL 29 MEQ/L (21-32); CHLORIDE LEVEL 109 MEQ/L (98-107); CREATININE FOR GFR 0.78 MG/DL (0.55-1.02); GLUCOSE, FASTING 92 MG/DL (70-105); MAGNESIUM LEVEL 2.2 MG/DL (1.8-2.4); POTASSIUM SERUM 3.9 MEQ/L (3.5-5.1); SODIUM LEVEL 142 MEQ/L (136-145); TOTAL PROTEIN 6.8 GM/DL (6.4-8.2)
[2016-11-08] MEDS ORDERED: ENOXAPARIN 40 MG/0.4 ML SYRINGE (J1650) SC SCH (09:00)
[2016-11-08] MEDS ORDERED: PANTOPRAZOLE 40MG TAB (PROTONIX) PO SCH (09:00)
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
--- NOTE | 2016-11-08 11:05 | ECGEPIP ---
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
[2016-11-08] MEDS ORDERED: CALCIUM CARBONATE 500 MG CHEW U/D PO SCH (12:30)
--- NOTE | 2016-11-08 14:32 | IPN ---
DATE: 11/08/2016 SUBJECTIVE: Today the patient tells me that she still feels that she is suicidal, yes and no. She denies chest pain, shortness of breath, fevers, chills, nausea, vomiting, diarrhea. She does admit that she was attempting to take her life by taking excessive sotalol and drinking alcohol. OBJECTIVE: VITAL SIGNS: Temperature 98.1, pulse 68, respiratory rate 17, blood pressure 121/70, oxygen saturation 99% on room air. GENERAL: She is a young, pleasant -Uk[place] female lying flat in bed in no distress. HEENT: Cranial nerves II through XII are grossly intact. Moist mucous membranes. CARDIOVASCULAR EXAM: S1 and S2 regular. RESPIRATORY EXAM: Clear. ABDOMINAL EXAM: Benign. EXTREMITIES: No clubbing, cyanosis, or edema. LABORATORY STUDIES: WBC 6.7, hemoglobin 13, platelet count 266. Chemistry panel: Sodium 142, potassium 3.9, chloride 109, bicarb 29, BUN 8, creatinine 0.7. Multiple sets of cardiac enzymes negative. HCG test is negative. Toxicology is negative. ASSESSMENT/PLAN: This is a 20-year-old female with a history of Lusjk-Xvdlqhvho-Mdkpd status post suicide attempt. PROBLEMS: 1. Suicidal ideation. Dr. Fisher of psychiatry's help has been greatly appreciated. I called him this morning for a consult. The patient has expressed quite significant and severe major depressive disorder. She will likely benefit from [facility] services. She is currently on a one to one sitter. 2. Blphe-Wzjyjgxcg-Ihmvl. Dr. Silverio's help is greatly appreciated. Sotalol is likely out of her system. She should followup with her wire coating machine operator Dr. Sheth. We have both requested records but none have been available at this time. Her EKGs appear to be unchanged. She is not bradycardic and her QTc has remained stable. Her QT has remained stable. I agree that she is medically stable for discharge at this time. 3. Seizure disorder history of stress induced seizures, however she is not on any medications at this time. She is stable without any seizure activity. DISPOSITION: Once the patient has a bed on inpatient mental health, she will be discharged.
--- NOTE | 2016-11-12 15:29 | DSES ---
DATE OF ADMISSION: 11/06/2016 DATE OF DISCHARGE: 11/08/2016 DISCHARGE DIAGNOSIS: Suicidal ideation. SECONDARY DIAGNOSIS: Dihps-Pigihrvlq-Zuynu. CONSULTATIONS: Dr. Silverio of cardiology, Dr. Fisher, psychiatry. Hospital Course The patient is a 20-year-old female who presented with suicidal ideation. She had taken sotalol several days earlier and drank alcohol, later presenting to the emergency room. Dr. Silverio had been consulted. The patient has a history of Mhncv-Zzvajtoor-Zpdng and had been on sotalol in the past, but had been discontinued from it. She had a history two ablations earlier in the year and had not been successful. She was admitted to the medical/surgical service and monitored. Her electrocardiograms (EKGs) were unchanged. From Dr. Silverio from a cardiac perspective, she was safe to return to psychiatric care or non monitor as she was relatively low risk for arrhythmic event, and no higher than her regular baseline. The patient was seen by psychiatry who felt that she was appropriate for inpatient mental health. At this time, the patient is being discharged to inpatient mental health, to followup with her improvement specialist and channel opener within seven days. Her activity and diet are as prior to admission. No medications at the time of discharge Greater than 30 minutes were spent in coordinating disposition. RHONDA
[2016-11-14] MEDS ORDERED: AMBI5TAB PO (08:57)
== END 2016-11-08 15:24 ==
LOC: M ED 18:37 → M ED INP 18:38 → M MSPAV 11-07 17:05
PROVIDERS: ADMIT Hospitalist; ATTEND Internal Medicine
DX: R45.851 Suicidal ideations (principal); I45.6 Pre-excitation syndrome; G40.909 Epilepsy, unspecified, not intractable, without status epilepticus; Z79.899 Other long term (current) drug therapy; F32.9 Major depressive disorder, single episode, unspecified; F41.9 Anxiety disorder, unspecified; F17.210 Nicotine dependence, cigarettes, uncomplicated
CPT/HCPCS: 36415; 71010; 80048; 80053; 80076; 80306; 82550; 82553; 83735; 84443; 84703; 85025; 85027; 93005; 93041; 99285; G0480

== ENCOUNTER 2016-11-08 15:39 | Inpatient (IN) | payer MEDICAID ==
[~2016-11-08] VITALS: Ht 172.7 cm; Wt 83.2 kg
[2016-11-08 15:52] VITALS: BP 135/78
[2016-11-08] MEDS ORDERED: MAALOX 30 ML SUSP *UDC PO PRN (17:15)
[2016-11-08] MEDS ORDERED: traZODone 50 MG TAB PO PRN (17:15)
[2016-11-08] MEDS ORDERED: LORazepam 1 MG TAB PO PRN (17:15)
[2016-11-08] MEDS ORDERED: MOM 30ML SUSPENSION UDC PO PRN (17:15)
[2016-11-08] MEDS ORDERED: ACETAMINOPHEN TAB 650MG DOSE (2X325MG) PO PRN (17:15)
[2016-11-09 06:39] VITALS: BP 102/56
--- NOTE | 2016-11-09 08:58 | HPEPDOC ---
Medical History and Physical Date of Admission November 08, 2016 at 15:39 History and Physical PCP: [facility] ATTENDING: Dr. Carlos Thakur HPI: 20yoF admitted to [facility] for unspecified depressive disorder, being medically examined today. Patient was admitted to the hospital 11/06/16 to related to sotalol overdose. She was seen in consultation by cardiology, Dr Silverio, and felt stable for transfer to [facility]. Sotalol remains on hold, records from her Erp Implementation Consultant pending. The patient reports that she was told to wean off her sotalol in August as per her pleater. She reports occasional episodes of palpitations described as fast heartbeats. Occasional shortness of breath when she becomes anxious. She states she has not had any of these symptoms thus far on the unit. No acute medical complaints today. Denies any fevers, chills, weakness, fatigue, LEMUS, CP, SOB, cough, palpitations, abdominal pain, N/V/D or changes in bowel or bladder habits. PMHx: WPW status post [address] Baldo Eid Seizure disorder followed by Dr. Umm Waldron Depression Anxiety PSHX: 2 ablation procedures for WPW SOCHX: Resides in: [place], living with a friend Marital Status: Single Kids: 5-month-old Employment: Employed Tobacco use: One to 2 times per month ETOH: Twice per month 3-4 drinks Illicit Drugs: Denies IV Drug Use: Denies Tattoos done unprofessionally: Denies FAMHX: Mother: Alive, history of uterine cancer, bladder cancer, seizure Father: Alive, unknown Siblings: Alive, sister with history of depression, anxiety, and SI Children: Alive, well Unexpected deaths due to medical reasons: None. ROS: As noted in HPI, otherwise 11pt ROS of systems reviewed and remarkable only for LMP 11/05/16 PE: GEN: 20 yo F, appears stated age. Well-nourished, well developed. No acute distress. Alert and oriented x 3. Pleasant, interactive. HEENT: Normocephalic, atraumatic. Pupils are equal, round, and reactive to light. Extraocular movements are intact. No nystagmus appreciated. Sclera are nonicteric. Conjunctiva without injection. Nose midline. Nasal turbinates without bogginess. EACs both patent BL. TMs both visualized and amos with good cone of light, no bulging or erythema. No facial asymmetry. Moist mucous membranes. Dentition fair. Pharynx pink and moist, no cobblestoning. Neck supple , trachea midline. No lymphadenopathy or thyromegaly appreciated. CHEST: Regular rate and rhythm, +S1, +S2 LUNGS: Clear to auscultation bilaterally. No wheezes, rales, or rhonchi. Breathing appears symmetric and easy. Patient is speaking in full sentences. No accessory muscle use. ABD: Round, soft, non-tender, non-distended. +Bowel sounds throughout. No rebound or guarding. No costovertebral angle tenderness. EXT: Pulses 2+ bilaterally dorsalis pedis and radial. No lower extremity edema appreciated. SKIN: [place], dry, warm. Capillary refill <2sec. No rashes. NEURO: Alert and oriented x 3. Cranial nerves III-XII are intact. No focal deficits appreciated. EK11/08/16 SINUS RHYTHM Prior WITH SHORT AR AND WPW 11/07/16 ALSO WITH NOW PROP EARLY REPOLAR CHANGES AND INF T ABN A&P: 20yoF admitted to [facility] for unspecified depressive disorder 1. Psych. Plan per Psychiatry. EKG on file. 2. WPW status post ablation procedure 2. Sotalol remains on hold at this time. Request copy of records from her pleater for review. Plan for outpatient follow-up with her pleater in [place]. 3. Seizure disorder. The patient states she does not take any medications at home. Follows with Dr. Umm Waldron. Copy of records requested and are pending at this time. 4. Follow up. with PCP on discharge. 5. Stephanie Ramos RN present throughout exam. Vital Signs Vital Signs Date Time Temp Pulse Resp B/P (MAP) Pulse Ox O2 Delivery O2 Flow Rate FiO2 11/09/16 06:39 97.6 96 18 102/56 (71) 11/08/16 15:52 98 Room Air Laboratory Data Labs 24H Item Value Date Time Salicylates Level < 1.7 MG/DL L 11/06/161856 Urine Opiates Screen NEGATIVE 11/06/161850 Urine Methadone Screen NEGATIVE 11/06/161850 Acetaminophen Level < 2.0 UG/ML L 11/06/161856 Urine Barbiturates Screen NEGATIVE 11/06/161850 Urine Phencyclidine Screen NEGATIVE 11/06/161850 Urine Amphetamines Screen NEGATIVE 11/06/161850 Urine Benzodiazepines Screen NEGATIVE 11/06/161850 Urine Cocaine Metabolite Screen NEGATIVE 11/06/161850 Urine Cannabinoids Screen NEGATIVE 11/06/161850 Ethyl Alcohol Level < 0.003 % 11/06/161856 Item Value Date Time White Blood Count 6.7 K/mm3 11/08/16613 Red Blood Count 4.04 M/mm3 11/08/16 0614 Hemoglobin 13.0 g/dl 11/08/16 0614 Hematocrit 39.6 % 11/08/16 0614 Mean Corpuscular Volume 97.9 fl H 11/08/16613 Mean Corpuscular Hemoglobin 32.1 pg 11/08/16613 Mean Corpuscular Hemoglobin Concent 32.8 g/dl 11/08/16613 Red Cell Distribution Width 12.3 % 11/08/16613 Platelet Count 266 k/mm3 11/08/16 0614 Neutrophils (%) (Auto) 50.9 % 11/08/16 0614 Lymphocytes (%) (Auto) 40.0 % 11/08/16 0614 Sodium Level 142 MEQ/L 11/08/16 0614 Potassium Level 3.9 MEQ/L 11/08/16 0614 Chloride Level 109 MEQ/L H 11/08/16 0614 Carbon Dioxide Level 29 MEQ/L 11/08/16 0614 Anion Gap 4 MEQ/L L 11/08/16 0614 Blood Urea Nitrogen 8 MG/DL 11/08/16 0614 Creatinine 0.78 MG/DL 11/08/16 0614 Fasting Glucose 92 MG/DL 11/08/16 0614 Calcium Level 8.3 MG/DL L 11/08/16 0614 Magnesium Level 2.2 MG/DL 11/08/16 0614 Total Bilirubin 0.3 MG/DL # 11/08/16 0614 Aspartate Amino Transf (AST/SGOT) 16 U/L 11/08/16 0614 Alanine Aminotransferase (ALT/SGPT) 27 U/L 11/08/16 0614 Alkaline Phosphatase 73 U/L 11/08/16 0614 Total Protein 6.8 GM/DL 11/08/16 0614 Albumin 2.9 GM/DL L 5/17/17 0614 Albumin/Globulin Ratio 0.74 L 11/08/16613 Thyroid Stimulating Hormone (TSH) 1.190 uIU/ML 11/06/161856 Human Chorionic Gonadotropin, Qual NEGATIVE 11/06/161856 Home Medications No Active Prescriptions or Reported Meds Allergies Coded Allergies: Ibuprofen (Verified Adverse Reaction, Mild, UPSET STOMACH, 02/20/15) Hellen Gregorio November 09, 2016 08:58
[2016-11-09] MEDS ORDERED: SERTRALINE HCL 50 MG TAB PO SCH (09:00)
[2016-11-09 10:02] VITALS: BP 168/99
[2016-11-09 10:04] VITALS: BP 169/111
[2016-11-09 10:07] VITALS: BP 143/73
[2016-11-09 10:34] LABS: MEAN CORPUSCULAR HEMOGLOBIN 32.4 pg (27.0-33.0); MEAN CORPUSCULAR HGB CONC 33.3 g/dl (32.0-36.5); MEAN CORPUSCULAR VOLUME 97.5 fl (80.0-96.0); RED CELL DISTRIBUTION WIDTH 12.4 % (11.5-14.5); WHITE BLOOD COUNT 8.4 K/mm3 (4.0-10.0)
[2016-11-09 10:37] VITALS: BP 168/99
[2016-11-09 10:45] VITALS: BP 148/80
[2016-11-09 11:04] LABS: ALBUMIN 3.2 GM/DL (3.2-5.2); ALBUMIN/GLOBULIN RATIO 0.76 (1.00-1.93); ALKALINE PHOSPHATASE 79 U/L (45-117); ALT/SGPT 28 U/L (12-78); ANION GAP 6 MEQ/L (8-16); AST/SGOT 16 U/L (15-37); BILIRUBIN,TOTAL 0.2 MG/DL (0.2-1.0); BLOOD UREA NITROGEN 8 MG/DL (7-18); CALCIUM LEVEL 8.2 MG/DL (8.5-10.1); CARBON DIOXIDE LEVEL 27 MEQ/L (21-32); CHLORIDE LEVEL 108 MEQ/L (98-107); CREATININE FOR GFR 0.87 MG/DL (0.55-1.02); GLUCOSE, FASTING 89 MG/DL (70-105); POTASSIUM SERUM 3.9 MEQ/L (3.5-5.1); SODIUM LEVEL 141 MEQ/L (136-145); TOTAL PROTEIN 7.4 GM/DL (6.4-8.2)
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
--- NOTE | 2016-11-09 12:51 | ECGEPIP ---
Stationary ECG Study [facility] Test Date: 2016-11-09 Pat Name: PALMA RODGERS Department: Room: [place] [address] Gender: F Bead Trimmer: ABILIO : 1995 Requested By: Hellen Gregorio Order Number: [id number] Reading MD: Julissa Gonzales Measurements Intervals [place] Rate: 81 P: 30 IA: QRS: 32 QRSD: 145 T: 248 QT: 400 QTc: Interpretive Statements SINUS RHYTHM WITH SHORT IA INTERVAL LEFT BUNDLE BRANCH BLOCK DELTA WAVES WPW TYPE B INTERMITTANTLY PRESENT Electronically Signed On 11-09-2016 12:51:06 EDT by Julissa Gonzales
[2016-11-14] MEDS ORDERED: AMBI5TAB PO (08:57)
== END 2016-11-09 10:45 | disposition other institution (70) | DRG 754 ==
LOC: M PSY 15:39
PROVIDERS: ADMIT Psychiatry & Neurology Psychiatry; ATTEND Psychiatry & Neurology Psychiatry
DX: F32.9 Major depressive disorder, single episode, unspecified (principal); R45.851 Suicidal ideations; F43.10 Post-traumatic stress disorder, unspecified; I45.6 Pre-excitation syndrome; F44.5 Conversion disorder with seizures or convulsions; Z91.410 Personal history of adult physical and sexual abuse; Z62.810 Personal history of physical and sexual abuse in childhood; Z72.0 Tobacco use; Z80.52 Family history of malignant neoplasm of bladder; Z80.49 Family history of malignant neoplasm of other genital organs; Z81.8 Family history of other mental and behavioral disorders

== ENCOUNTER 2016-11-09 10:10 | Observation (INO) | payer MEDICAID ==
[2016-11-09 10:45] VITALS: BP 108/55
[2016-11-09] MEDS ORDERED: levETIRAcetam 250MG TABLET (KEPPRA) PO ONE (11:00)
--- NOTE | 2016-11-09 11:06 | HPEPDOC ---
Medical History and Physical Date of Admission November 09, 2016 at 10:43 History and Physical PCP: [facility] ATTENDING: Dr. Moise HPI: 20yoF admitted to [facility] for unspecified depressive disorder. Patient was admitted to the hospital 11/06/16 to 11/08/16 related to sotalol overdose. She was seen in consultation by cardiology, Dr Silverio, and felt stable for transfer to [facility]. Sotalol remains on hold, records from her Continuum Of Care Manager pending. The patient reports that she was told to wean off her sotalol in August as per her senior talent management consultant. She reports occasional episodes of palpitations described as fast heartbeats. Occasional shortness of breath when she becomes anxious. She stated she had not had any of these symptoms thus far on the unit. She reported a possible seizure last week but did not recall details. States she wakes up with some confusion and sometimes has bowel/bladder incontinence with seizure activity. Records from [facility] were requested and pending. She states she does not take any medications as outpt. Subsequently she was ambulating on the unit and was seen to sit down on the floor. She subsequently had loss of consciousness and hit the posterior aspect of her head. She was complaining of some head pain related to this. She was subsequently assisted to a wheelchair to return back to her room when she experienced recurrent loss of consciousness with tonic-clonic movements of her upper extremities and torso. RAT team was called. Blood pressure was noted to be 176/87, heart rate 107, oxygen saturation 98% on room air. The patient was noted to be tired and lethargic after the episode and was resting in bed. No tongue biting, no bowel or bladder incontinence noted. Following the episode the patient again reported some posterior head pain. The patient has reported she has seizure activity during times of stress. No fevers, chills. Pt does not report CP, SOB, cough, palpitations, abdominal pain, N/V/D or changes in bowel or bladder habits. Transfer from [facility] to med surg is arranged following discussion with Dr Moise. PMHx: WPW status post 2 ablation [address] Follow[address] by Dr Baldo Eid Seizure disorder followed by Dr. Umm Waldron. No meds as outpt per pt. Depression Anxiety PSHX: 2 ablation procedures for WPW SOCHX: Resides in: [place], living with a friend Marital Status: Single Kids: 5-month-old Employment: Employed Tobacco use: One to 2 times per month ETOH: Twice per month 3-4 drinks Illicit Drugs: Denies IV Drug Use: Denies Tattoos done unprofessionally: Denies FAMHX: Mother: Alive, history of uterine cancer, bladder cancer, seizure Father: Alive, unknown Siblings: Alive, sister with history of depression, anxiety, and SI Children: Alive, well Unexpected deaths due to medical reasons: None. ROS: As noted in HPI, otherwise 11pt ROS of systems reviewed and remarkable only for LMP 11/05/16 PE: GEN: 20 yo F, appears stated age. Well-nourished, well developed. No acute distress. Alert and oriented x 3. Pleasant, interactive. HEENT: Normocephalic, atraumatic. Pupils are equal, round, and reactive to light. Extraocular movements are intact. No nystagmus appreciated. Sclera are nonicteric. Conjunctiva without injection. Nose midline. Nasal turbinates without bogginess. EACs both patent BL. TMs both visualized and amos with good cone of light, no bulging or erythema. No facial asymmetry. Moist mucous membranes. Dentition fair. Pharynx pink and moist, no cobblestoning. Neck supple , trachea midline. No lymphadenopathy or thyromegaly appreciated. CHEST: Regular rate and rhythm, +S1, +S2 LUNGS: Clear to auscultation bilaterally. No wheezes, rales, or rhonchi. Breathing appears symmetric and easy. Patient is speaking in full sentences. No accessory muscle use. ABD: Round, soft, non-tender, non-distended. +Bowel sounds throughout. No rebound or guarding. No costovertebral angle tenderness. EXT: Pulses 2+ bilaterally dorsalis pedis and radial. No lower extremity edema appreciated. SKIN: [place], dry, warm. Capillary refill <2sec. No rashes. NEURO: Alert and oriented x 3. Cranial nerves III-XII are intact. No focal deficits appreciated. EK11/08/16 SINUS RHYTHM Prior WITH SHORT OR AND WPW 11/07/16 ALSO WITH NOW PROP EARLY REPOLAR CHANGES AND INF T ABN EKG 11/09 pending. A&P: 20yoF admitted to [facility] for unspecified depressive disorder 1. Seizure disorder. Neuro checks/Seizure precautions. The patient states she does not take any medications at home. Follows with Dr. Umm Waldron. Copy of records requested and are pending at this time. Neurology consult is requested for further recommendations. Pt is started on Keppra. CBC/CMP requested. CT head pending. EEG pending. 2. WPW status post ablation procedure 2. Sotalol remains on hold at this time. Request copy of records from her senior talent management consultant for review. Plan to continue to hold sotalol. EKG pending. 3. Seizure disorder. The patient states she does not take any medications at home. Follows with Dr. Umm Waldron. Copy of records requested and are pending at this time. Neurology consult is requested for further recommendations. Pt is started on Keppra. 4. Follow up. with PCP on discharge. 5. Psych. Plan per Psychiatry. Discussed with Dr Avila. Vital Signs 107 176/87 98% RA Laboratory Data Labs 24H Item Value Date Time White Blood Count 8.4 K/mm3 11/09/16 1018 Red Blood Count 4.14 M/mm3 11/09/16 1018 Hemoglobin 13.4 g/dl 11/09/16 1018 Hematocrit 40.4 % 11/09/16 1018 Mean Corpuscular Volume 97.5 fl H 11/09/16 1018 Mean Corpuscular Hemoglobin 32.4 pg 11/09/16 1018 Mean Corpuscular Hemoglobin Concent 33.3 g/dl 11/09/16 1018 Red Cell Distribution Width 12.4 % 11/09/16 1018 Platelet Count 263 k/mm3 11/09/16 1018 Sodium Level 141 MEQ/L 11/09/16 1018 Potassium Level 3.9 MEQ/L 11/09/16 1018 Chloride Level 108 MEQ/L H 11/09/16 1018 Carbon Dioxide Level 27 MEQ/L 11/09/16 1018 Anion Gap 6 MEQ/L L 11/09/16 1018 Blood Urea Nitrogen 8 MG/DL 11/09/16 1018 Creatinine 0.87 MG/DL 11/09/16 1018 Fasting Glucose 89 MG/DL 11/09/16 1018 Calcium Level 8.2 MG/DL L 11/09/16 1018 Total Bilirubin 0.2 MG/DL 11/09/16 1018 Aspartate Amino Transf (AST/SGOT) 16 U/L 11/09/16 1018 Alanine Aminotransferase (ALT/SGPT) 28 U/L 11/09/16 1018 Alkaline Phosphatase 79 U/L 11/09/16 1018 Total Protein 7.4 GM/DL 11/09/16 1018 Albumin 3.2 GM/DL 11/09/16 1018 Albumin/Globulin Ratio 0.76 L 11/09/16 1018 Home Medications No Active Prescriptions or Reported Meds Allergies Coded Allergies: Ibuprofen (Verified Adverse Reaction, Mild, UPSET STOMACH, 02/20/15) Hellen Gregorio November 09, 2016 11:06
[2016-11-09] MEDS ORDERED: ACETAMINOPHEN TAB 650MG DOSE (2X325MG) PO ONE (12:15)
--- NOTE | 2016-11-09 12:57 | REP ---
Clinical: Seizures . Comparison: 04/01/2016 . Findings: The ventricles, sulci, and cisterns are normal in position and appearance. Pollock-white differentiation is maintained. No acute intracranial hemorrhage, mass/mass effect, pathology or trauma/injury. No evidence for acute infarction. No extra-axial fluid collection. Calvarium is intact. Paranasal sinuses and mastoid air cells are clear. Impression: Normal noncontrast head CT. No evidence for acute intracranial pathology or trauma/injury. Signed by David Prasad MD 11/09/2016 12:48 P
[2016-11-09 14:00] VITALS: BP 144/73
[2016-11-09] MEDS ORDERED: levETIRAcetam 250MG TABLET (KEPPRA) PO SCH (21:00)
[2016-11-09 22:00] VITALS: BP 137/73
[2016-11-10 06:00] VITALS: BP 128/60
[2016-11-10 06:05] LABS: MEAN CORPUSCULAR HGB CONC 33.2 g/dl (32.0-36.5); MEAN CORPUSCULAR VOLUME 99.3 fl (80.0-96.0); RED CELL DISTRIBUTION WIDTH 12.1 % (11.5-14.5); WHITE BLOOD COUNT 6.9 K/mm3 (4.0-10.0)
[2016-11-10 06:32] LABS: ALBUMIN/GLOBULIN RATIO 0.73 (1.00-1.93); ALKALINE PHOSPHATASE 72 U/L (45-117); ALT/SGPT 25 U/L (12-78); ANION GAP 5 MEQ/L (8-16); AST/SGOT 16 U/L (15-37); BILIRUBIN,TOTAL 0.3 MG/DL (0.2-1.0); BLOOD UREA NITROGEN 9 MG/DL (7-18); CALCIUM LEVEL 8.4 MG/DL (8.5-10.1); CARBON DIOXIDE LEVEL 29 MEQ/L (21-32); CHLORIDE LEVEL 108 MEQ/L (98-107); CREATININE FOR GFR 0.79 MG/DL (0.55-1.02); GLUCOSE, FASTING 86 MG/DL (70-105); POTASSIUM SERUM 4.1 MEQ/L (3.5-5.1); SODIUM LEVEL 142 MEQ/L (136-145); TOTAL PROTEIN 7.1 GM/DL (6.4-8.2)
--- NOTE | 2016-11-10 12:28 | MHCRPDOC ---
[facility] Consultation Consultation DATE OF CONSULTATION: 11/10/16 CONSULTATION REQUESTED BY: [facility] Hospitalist Service REASON FOR CONSULTATION: Need for Inpatient psychiatric services RELEVANT HISTORY: The patient a 20 year old woman, whom was yesterday transferred from [facility] to the medical floor due to concern for a seizure episode (on day 1 of admission) . After the observation and work up, the patient was medically cleared to return to the [facility] if she needed the services. The majority of her history is documented by Dr. Avila's H&P from the day prior. After meeting with the patient she was stating that her mood was mildly improved after having a visit to from her young daughter the day prior. She described that she is amenable to returning to inpatient psychiatry to continue treatment. MENTAL STATUS EXAMINATION: Patient is a [AGE]-year old female, who is laying in bed, good eye contact Speech is normal, non-pressured Language skills are intact. Thought processes including: coherent Thought content: worries about child but resolution to continue to get treatment Abstract reasoning, and computation: intact Description of associations: intact Description of abnormal or psychotic thoughts: denies any current SI or passive wants to . She doesn't appear to be responding to internal stimuli. Judgment: poor Insight: improved Orientation to A&Ox3 Recent and remote memory: reports impairment to recent memory of the incident Attention span and concentration: intact Language: normal Fund of knowledge: fair Mood: "okay" Affect: dysthymic, constricted DIAGNOSIS: 1. Unspecified depressive disorder PLAN: 1 9.37 legals are filled out by the psychiatry team, will need signature on part C and S&R by medicine attending. Medicine attending reports medically cleared at this time 2. Admission once legals are completed and discharge order is completed, recommend cont 1:1 sitter per hospital protocol at this time. Vital Signs Vital Signs Date Time Temp Pulse Resp B/P (MAP) Pulse Ox O2 Delivery O2 Flow Rate FiO2 11/10/16 06:00 98.7 64 16 128/60 (82) 98 Room Air Laboratory Data 24H Labs Laboratory Tests 2 11/10/16 05:52: Anion Gap 5L, Blood Urea Nitrogen 9, Creatinine 0.79, Sodium Level 142, Potassium Level 4.1, Chloride Level 108H, Carbon Dioxide Level 29, Calcium Level 8.4L, Aspartate Amino Transf (AST/SGOT) 16, Alanine Aminotransferase (ALT/ SGPT) 25, Alkaline Phosphatase 72, Total Bilirubin 0.3, Total Protein 7.1, Albumin 3.0L, Albumin/Globulin Ratio 0.73L Home Medications Current Medications Current Medications Levetiracetam (Keppra) 500 mg BID PO ; Start 11/09/16 at 21:00; Stop 11/09/16 at 21:00; Status DC No Active Prescriptions or Reported Meds Allergies Coded Allergies: Ibuprofen (Verified Adverse Reaction, Mild, UPSET STOMACH, 02/20/15) GME ATTESTATION My preceptor for this patient encounter was physically present in the building during the encounter and was fully available. As needed, all aspects of the patient interview, examination, medical decision making process, and medical care plan development were reviewed and approved by the preceptor. Preceptor is aware and concurs with the plan as stated in the body of this note and will attest to such by his/her cosignature. DIVINE PADILLA DO November 10, 2016 12:28
[2016-11-10 14:00] VITALS: BP 128/73
[2016-11-10 15:15] VITALS: BP 120/67
--- NOTE | 2016-11-12 15:30 | DSES ---
DATE OF ADMISSION: 11/09/2016 DATE OF DISCHARGE: 11/10/2016 DISCHARGE DIAGNOSIS: Pseudoseizure. SECONDARY DIAGNOSES: 1. Aqgwl-Utspnwxmk-Rgkhb. 2. Suicidal ideation. HOSPITAL COURSE: The patient is a 20-year-old female who was just discharged from inpatient mental health unit after having had an overdose and alcohol consumption several days prior to her presentation to the emergency room. She had been monitored on telemetry. She was seen by Dr. Silverio at that time. She was wearing a Holter monitor. The patient's EKG did not show any significant change from her supposed baseline. She was discharged to inpatient mental health unit and while on inpatient mental health unit she had what was thought to be seizure-like activity. Rapid assessment was called, and the patient was seen by myself personally and was admitted to medical/surgical floor. The patient had a self reported history of seizure disorder. She was admitted to the medical/surgical floor. CT scan of the head was unrevealing for any new pathology. CBC and CMP were also unrevealing. I did discuss the case with her neurology group, who reported that she has a long history of pseudoseizures and no actual seizure disorder. The patient has actually been seen and monitored by video EEG at [facility] and this was confirmed to be pseudoseizures. They recommended no medications and no further interventions and outpatient can followup with them. The patient was seen once again by psychiatry and given her suicidal ideations, appropriate for dispositioning back to inpatient mental health unit and at this time is being discharged there. Today, the patient reports that she feels well. She has no complaints of chest pain, shortness of breath, fevers, chills, nausea, vomiting, or diarrhea. OBJECTIVE: VITAL SIGNS: Temperature 98.7, pulse 54, respiratory rate 16, blood pressure 120/60, oxygen saturation 98% on room air. GENERAL: She is a young, pleasant, -Chile[place] female in no distress. HEENT: Cranial nerves II through XII are grossly intact. Moist mucous membranes. CARDIOVASCULAR EXAM: S1, S2 regular. RESPIRATORY EXAM: Clear. ABDOMINAL EXAM: Benign . EXTREMITIES: No clubbing, cyanosis or edema. LABORATORY STUDIES: WBC 6.9, hemoglobin 13.3, platelet count 277. Chemistry panel: Sodium 142, potassium 4.1, chloride 108, bicarbonate 29, BUN 9, creatinine 0.7. Imaging: As outlined above. ASSESSMENT AND PLAN: This is a 20-year-old female with pseudoseizures and Lyvpg-Phjyfzyzo-Rlmlu and suicidal ideation. 1. Pseudoseizures. I have discussed with neurology. No medications are indicated. No treatment is indicated. No further testing indicated. Followup with neurology when discharged from inpatient mental health unit within 2 weeks. 2. Xotky-Bjtrxfkph-Kmsdi. Medically stable. She has been evaluated by cardiology this week without any significant EKG changes. She is wearing a Holter. If there is any question in the future about episodes of syncope, contact her community development technician and review Holter data. 3. Suicidal ideation. The patient is being discharged to inpatient mental health. DISPOSITION: The patient is being discharged to inpatient mental health unit. She is to followup with neurology in 2 weeks, cardiology, Dr. Silverio, within 2 weeks, primary care provider within 1 week. Activity and diet are as prior to admission. Greater than 45 minutes was spent coordinating disposition.
[2016-11-14] MEDS ORDERED: AMBI5TAB PO (08:57)
== END 2016-11-10 16:33 ==
LOC: PREINTOOBSV 10:42 → M MSPAV 10:43
PROVIDERS: ADMIT Internal Medicine; ATTEND Internal Medicine
DX: R56.9 Unspecified convulsions (principal); I45.6 Pre-excitation syndrome; R45.851 Suicidal ideations

== ENCOUNTER 2016-11-10 16:35 | Inpatient (IN) | payer MEDICAID ==
[~2016-11-10] VITALS: Ht 172.7 cm; Wt 83.2 kg
[2016-11-10] MEDS ORDERED: ACETAMINOPHEN TAB 650MG DOSE (2X325MG) PO PRN (17:30)
[2016-11-10] MEDS ORDERED: MAALOX 30 ML SUSP *UDC PO PRN (17:30)
[2016-11-10] MEDS ORDERED: MOM 30ML SUSPENSION UDC PO PRN (17:30)
[2016-11-10] MEDS: traZODone 50 MG TAB PO PRN (20:07)
[2016-11-10] MEDS: LORazepam 1 MG TAB PO SCH (20:07)
[2016-11-10] MEDS: levETIRAcetam 250MG TABLET (KEPPRA) PO SCH (20:07)
[2016-11-11 06:43] VITALS: BP 113/60
[2016-11-11] MEDS: SERTRALINE HCL 50 MG TAB PO SCH (08:37)
[2016-11-11] MEDS: LORazepam 1 MG TAB PO SCH ×2 (08:37→21:16)
[2016-11-11] MEDS: levETIRAcetam 250MG TABLET (KEPPRA) PO SCH (08:37)
[2016-11-11 13:25] VITALS: BP 128/61
[2016-11-11 18:23] VITALS: BP 115/64
[2016-11-11] MEDS: traZODone 50 MG TAB PO PRN (21:16)
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
--- NOTE | 2016-11-12 00:03 | MHIPNPDOC ---
[facility] Progress Note Progress Note DATE OF SERVICE: 11/11/16 Patient was discharged from the [facility] to Telemetry following the recommendations of Dr. jeffery who kindly evaluated her for her fainting episodes, but pt. refused to go to PCU and Dr. Jeffery explained that because pt. is stable and she is not having wide variations in pulse or blood pressure, its not necessary to take her to Telemetry but that Hospitalists will follow her up at [facility]. Patient had already been discharged to Telemetry and this discharge was cancelled. Pt will continue at the [facility] and will be monitored closely, following reccomendations of Dr. Jeffery. TIME SPENT: 10 minutes. Vital Signs Vital Signs Date Time Temp Pulse Resp B/P (MAP) Pulse Ox O2 Delivery O2 Flow Rate FiO2 11/11/16 18:23 97.8 87 16 115/64 (81) 11/11/16 13:25 98 Room Air Laboratory Data 24H Labs Laboratory Tests 2 11/11/16 21:41: Current Medications Current Medications Acetaminophen (Tylenol Tab) 650 mg Q6HP PRN PO HEADACHE or DISCOMFORT; Start at 17:30; Stop 12/10/16 at 17:29 Al Hydrox/Mg Hydrox/Simethicone (Mylanta) 30 ml Q4HP PRN PO HEARTBURN/ INDIGESTION; Start 11/10/16 at 17:30; Stop 12/10/16 at 17:29 Diphenhydramine HCl (Benadryl) 25 mg QHS PO ; Start 11/12/16 at 21:00; Stop at 20:59 Levetiracetam (Keppra) 500 mg BID PO Last administered on 11/11/16 08:37; Start 11/10/16 at 21:00; Stop 11/11/16 at 17:26; Status DC Lorazepam (Ativan) 1 mg BID PO Last administered on 11/11/16 21:16; Start at 21:00; Stop 11/17/16 at 20:59 Magnesium Hydroxide (Milk Of Magnesia) 30 ml DAILYPRN PRN PO CONSTIPATION; Start 11/10/16 at 17:30; Stop 12/10/16 at 17:29 Sertraline HCl (Zoloft) 50 mg DAILY PO Last administered on 11/11/16 08:37; Start 11/11/16 at 09:00; Stop 12/11/16 at 08:59 Trazodone HCl (Desyrel) 50 mg QHSP PRN PO INSOMNIA Last administered on 21:16; Start 11/10/16 at 17:30; Stop 11/11/16 at 21:41; Status DC Allergies Coded Allergies: Ibuprofen (Verified Adverse Reaction, Mild, UPSET STOMACH, 02/20/15) TERRY EPPERSON MD November 12, 2016 00:03
--- NOTE | 2016-11-12 01:34 | IPN ---
DATE OF SERVICE: 11/12/2016 Dr. Fisher, psychiatrist, requested evaluation of patient, Chica Alcaraz due to complaints of near syncope and persistent dizziness all day today. Ms. Alcaraz is an female with prior history of Pxqiz-Vkldiwcja-Naamf (WPW) syndrome followed by her turntable man, Dr. Eid with two prior ablations in June and August of this year, chronically on sotalol, which has been held secondary to attempted suicide on 11/04/16 when she took four 80 mg tablets of sotalol and alcohol. Patient has been medically cleared and was transferred to inpatient mental health unit for her suicide attempt. She has been complaining of persistent dizziness all day today. No lightheadedness. No syncopal episode. Denies any palpitations, denies any chest pain or pressure. Denies any shortness of breath. She has complained of generalized fatigue and almost felt like she was going to pass out. Vital signs throughout the day remained stable with a ventricular rate of 70-98. Patient denies any nausea, vomiting, constipation, diarrhea, bright red blood per rectum. Denies any changes in appetite. PHYSICAL EXAMINATION: VITAL SIGNS: Temperature 97.8, pulse 87, respiratory rate 16, blood pressure 115/64, 98% on room air. GENERAL: Patient is awake, alert, oriented times three, answering questions appropriately. She appears to have a flat affect, depressed, but speaks in full sentences. LUNGS: Clear to auscultation. No wheezing, rales or rhonchi. HEART: S1, S2, regular rate, rhythm. ABDOMEN: Soft, nontender, nondistended. Positive bowel sounds. EXTREMITIES: No cyanosis, clubbing or any pitting edema. LABORATORY DATA: 11/11 prolactin level is pending. ASSESSMENT AND PLAN: This is a 20-year-old female with history of Zxdfo-Kknprdchv-Ctcfm (WPW) syndrome status post ablation times two, follows with turntable man, Dr. Eid, was on chronic sotalol since August, when she took four 80 mg tablets, excessive amount of alcohol for attempted suicide. Patient was medically optimized. Sotalol was discontinued. Accountant Manager, Dr. Silverio was consulted, felt that the patient did not require further monitoring with low risk of arrhythmic event. Hospitalist service was called today due to complaints of dizziness and near syncopal episode. IMPRESSION: 1.Near syncope, recurrent dizziness. Check orthostatics. 12-lead EKG does not appear to have any supraventricular tachycardia (SVT). Patient was instructed to call registered nurse (RN) should palpitations, lightheadedness, and dizziness continue for reevaluation. She currently refuses to be admitted to the telemetry unit. 2.wpw-EKG prn for palpitations, near syncope, chest pain. If SVT, will need sotalol resumed, and emergent admission to telemetry for monitoring. 3. Suicide attempt-psychiatric mgt per Dr. Fisher. 4. Severe depression-psychiatric mgt per Dr. Fisher. 5. History of seizures, monitor for symptoms and recurrence. may need AEDs. Therefore, will assign to Dr. Elva Moise for monitoring. [facility]
[2016-11-12 06:29] VITALS: BP_SYST 108; BP_SYST 138; BP_SYST 140; BP_DIAS 53; BP_DIAS 71; BP_DIAS 80
--- NOTE | 2016-11-12 07:47 | ECGEPIP ---
Stationary ECG Study [facility] Test Date: 2016-11-11 Pat Name: PALMA RODGERS Department: Room: [place] [address] Gender: F Bench Technician: : 1995 Requested By: RUPALI Flaherty Order Number: [id number] Reading MD: Julissa Gonzales Measurements Intervals [place] Rate: 73 P: MO: 0 QRS: 28 QRSD: 149 T: -67 QT: 436 QTc: 482 Interpretive Statements NSR SHORT MO DELTA WAVES WPW TYPEB LEFT BUNDLE BRANCH BLOCK HAS BEEN SEEN OR SEVERAL PRIOR INTERMITTANTLY Electronically Signed On 11-12-2016 7:47:20 EDT by Julissa Gonzales
[2016-11-12] MEDS: SERTRALINE HCL 50 MG TAB PO SCH (09:25)
[2016-11-12] MEDS: LORazepam 1 MG TAB PO SCH (09:25)
[2016-11-12 11:31] VITALS: BP_SYST 118; BP_SYST 129; BP_SYST 131; BP_DIAS 77; BP_DIAS 82; BP_DIAS 90
--- NOTE | 2016-11-12 15:19 | HPE ---
DATE OF ADMISSION: 11/11/2016 HISTORY OF PRESENT ILLNESS: Please refer to psychiatric history and physical (H P) for further details on the admission. This examination is intended for medical issues which may need treatment, followup or consult on this 20-year-old female who was on the inpatient mental health unit, developed what appeared to be a seizure, was transferred to the inpatient hospital unit for a seizure rule-out. Per the note, patient was seen on the medical floor. The medical team felt the patient was having pseudoseizures and dizzy episodes they felt may be related to cardiac arrhythmia, as she had Dqyi-Whcotvkst-Bhkqq (WPW) with ablations in the past. They thought she was medically stable and she returns to the inpatient mental health unit. ALLERGIES: IBUPROFEN. PAST MEDICAL HISTORY: 1. Vnzd-Wsavgfdyi-Qpmcl (WPW) status post two ablation procedures, followed by Dr. Eid. 2. Seizure disorder, followed by Dr. Umm Waldron. 3. Depression/anxiety. PAST SURGICAL HISTORY: Two ablation procedures for Qfmq-Wmrnfwvmb-Bpyek (WPW). SOCIAL HISTORY: Resides in [place] with a friend. She is single. She has a 5-month-old child. TOBACCO USE: She smokes maybe once or twice a month. EtOH: When she has a drink, which is approximately three to four drinks two times a month. RECREATIONAL DRUG USE: Denies any. FAMILY HISTORY: Mother alive, history of uterine cancer, bladder cancer, seizures. Father alive, health unknown. Ten-system review is done. Currently, patient has no complaints. States she is feeling okay. PHYSICAL EXAMINATION: A 20-year-old cooperative female in no acute distress. Patient is alert and oriented times three. Pupils equal and react to light. Extraocular muscles intact. Cornea and sclerae are clear. Conjunctivae normal. No facial asymmetry. Pharynx, tongue, gums are pink and moist. Tongue is midline. NECK: Supple, without lymphadenopathy. No thyromegaly. No goiter. CHEST: Clear to auscultation. No wheeze or retraction. HEART: Regular. ABDOMEN: Benign. Bowel sounds positive. GENITOURINARY/RECTAL: Not done. EXTREMITIES: Show equal strength. Full range of motion. No cyanosis, clubbing, or edema. Peripheral pulses equal and palpable bilaterally. SKIN: Warm and dry. NEUROLOGIC: Cranial nerves III-XII grossly intact. IMPRESSION/PLAN: 1. Psychiatric. Plan per psychiatry. 2. Questionable seizure. Was determined to be pseudoseizure. Will continue to monitor for seizure disorder. 3. History of Fxgx-Pojvmbkih-Txykd (WPW). 4. Follow up with cardiology. She sees Dr. Eid. He does come to [place]. Needs to have an outpatient follow up with him. His main base is in [place]. 5. Monitor for any dizzy spells or seizure disorder.
[2016-11-12 18:00] VITALS: BP_SYST 130; BP_SYST 140; BP_DIAS 76; BP_DIAS 80; BP_DIAS 81
[2016-11-12 20:00] VITALS: BP 122/68
[2016-11-12] MEDS ORDERED: diphenhydrAMINE 25 MG CAP PO SCH (21:00)
[2016-11-12] MEDS: LORazepam 0.5 MG TAB PO PRN (21:11)
[2016-11-13 06:34] VITALS: BP 122/81
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
[2016-11-13] MEDS: LORazepam 0.5 MG TAB PO PRN (08:30)
[2016-11-13] MEDS: SERTRALINE HCL 50 MG TAB PO SCH (08:30)
--- NOTE | 2016-11-13 15:44 | IPN ---
DATE: 11/13/2016 20-year-old female admitted for depression and overdose on five tablets of sotalol. SUBJECTIVE: "I'm feeling better." OBJECTIVE: Patient reports significant improvement. Patient denies any suicidal thought at this point. Patient is motivated for treatment. Says that she had a "little spell this morning." She suffers from Wxtss-Vwrrdgsjh-Cdhuo and is being followed by Dr. Franz and the medical team. I discussed the case with Dr. Moise. He reports that the patient is stable from a medical point of view and that she can be discharged from our unit when she is psychiatrically stable. During the interview today, patient states that tomorrow she has an appointment that she has been waiting for months for and she would like not to miss it. The patient is able to contract for safety. The patient admits some degree of depression but also reports improvement. Patient denies suicidal ideation. Patient denies auditory or visual hallucinations. Patient will be living with her friend who is her major support system at this time and the friend will come for a meeting with our c4 planner before discharge. Patient reports some degree of insomnia. I discussed the medication with the medical team and Dr. Moise recommends the use of Ambien for a short period of time. MENTAL STATUS EXAMINATION: Patient is dressed in [facility]. Patient is calm and cooperative, has fair eye contact. Speech is normal in rate, volume, articulation is coherent and is spontaneous. Patient's mood is slightly depressed but improved. Affect is congruent with mood. There is no evidence of delusions or hallucinations. Memory is fair. Patient is fully oriented. Associations are intact. Thinking is logical. Thought content is appropriate. Patient is denying suicidal or homicidal ideation. Insight and judgment is fair. ASSESSMENT: 1. Major depressive disorder. PLAN: 1. Will start Ambien 5 mg by mouth nightly to be repeated times one as needed for insomnia. 2. Continue sertraline 50 mg by mouth every morning. 3. Discharge process has started.
[2016-11-13 18:00] VITALS: BP 131/68
[2016-11-13 18:15] VITALS: BP 131/88
[2016-11-13 18:20] VITALS: BP 128/83
[2016-11-13] MEDS ORDERED: hydrOXYzine 25 MG TAB PO ONE (18:30)
[2016-11-13 18:43] VITALS: BP 128/74
[2016-11-13] MEDS ORDERED: zolPIDEM TARTRATE 5 MG TAB PO SCH (21:00)
[2016-11-14 06:59] VITALS: BP 114/58
[2016-11-14] MEDS: SERTRALINE HCL 50 MG TAB PO SCH (08:11)
[2016-11-14] MEDS ORDERED: AMBI5TAB PO (08:57)
[2016-11-14] MEDS ORDERED: SERT50TA PO (08:57)
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
== END 2016-11-14 10:00 | disposition home or self-care (01) | DRG 754 ==
LOC: M PSY 16:35
PROVIDERS: ADMIT Psychiatry & Neurology Psychiatry; ATTEND Psychiatry & Neurology Psychiatry
DX: F32.9 Major depressive disorder, single episode, unspecified (principal); G40.909 Epilepsy, unspecified, not intractable, without status epilepticus; R45.851 Suicidal ideations; F43.10 Post-traumatic stress disorder, unspecified; I45.6 Pre-excitation syndrome; Z88.6 Allergy status to analgesic agent; Z72.0 Tobacco use; Z80.52 Family history of malignant neoplasm of bladder; Z80.49 Family history of malignant neoplasm of other genital organs; Z82.0 Family history of epilepsy and other diseases of the nervous system; Z62.810 Personal history of physical and sexual abuse in childhood; Z91.410 Personal history of adult physical and sexual abuse

== ENCOUNTER → 2016-12-08 | Outpatient (REF) | payer MEDICAID, OTHER ==
[~2016-12-08] MED LIST changes: +AMBI5TAB PO; +BACT800T5 PO; +CLEO300C2 PO; +MEDR150I12; +METR1TAB66 PO; +PERC5TAB12 PO; -PERC5TAB6 PO; +PROZ20CA11 PO; +SERT50TA PO; +TYLE500T78 PO; +XANA0.5T3 PO
== END ==
LOC: M LAB REF 16:33
PROVIDERS: ATTEND Family Medicine Addiction Medicine
DX: Z20.2 Contact with and (suspected) exposure to infections with a predominantly sexual mode of transmission (principal)

== ENCOUNTER 2016-12-19 10:59 | Emergency (ER) | payer MEDICAID, OTHER ==
[~2016-12-19] VITALS: Ht 172.7 cm; Wt 78.9 kg
[2016-12-19 10:59] VITALS: BP 137/79
[~2016-12-19 10:59] MED LIST changes: -CLEO300C2 PO; +PERC5TAB12 PO; -PERC5TAB6 PO; -PROZ20CA11 PO; -XANA0.5T3 PO
[2016-12-19] MEDS ORDERED: PROZ20CA11 PO (11:07)
[2016-12-19] MEDS ORDERED: XANA0.5T3 PO (11:07)
[2016-12-19] MEDS ORDERED: TYLE325T5 PO (11:07)
[2016-12-19] MEDS ORDERED: LIDOCAINE 2% MDV 20 ML VIAL SC ONE (11:15)
[2016-12-19] MEDS ORDERED: CLINDAMYCIN 150 MG CAP PO ONE (11:30)
[2016-12-19] MEDS ORDERED: CLEO300C2 PO (11:32)
== END 2016-12-19 11:44 | disposition home or self-care (01) ==
LOC: M ED 11:17
DX: N61.1 Abscess of the breast and nipple (principal)

== ENCOUNTER → 2016-12-19 | Outpatient (REF) | payer MEDICAID, OTHER ==
[~2016-12-19] MED LIST changes: -BACT800T5 PO; -MEDR150I12; -METR1TAB66 PO; -PERC5TAB12 PO; +PERC5TAB6 PO; -TYLE500T78 PO
== END ==
LOC: M SFHCLERA 10:17
PROVIDERS: ATTEND Nurse Practitioner Family
DX: M79.5 Residual foreign body in soft tissue (principal)

== ENCOUNTER 2017-04-18 11:28 | Emergency (ER) | payer OTHER ==
[~2017-04-18] VITALS: Ht 167.6 cm; Wt 78.0 kg
[~2017-04-18 11:28] MED LIST changes: +CLEO300C2 PO; +PROZ20CA11 PO; +XANA0.5T3 PO
[2017-04-18] MEDS ORDERED: ACETAMINOPHEN 325 MG TAB PO ONE (14:00)
[2017-04-18] MEDS ORDERED: BACTRIM 160MG/800MG DS TAB PO ONE (14:00)
[2017-04-18] MEDS ORDERED: PHENAZOPYRIDINE 100 MG TAB PO ONE (14:00)
[2017-04-18] MEDS ORDERED: BACT800T5 PO (14:14)
[2017-04-18] MEDS ORDERED: TYLE500T78 PO (14:14)
--- NOTE | 2017-04-18 14:28 | REP ---
PELVIC ULTRASOUND: Real-time sonographic evaluation of the pelvis performed utilizing transabdominal and endovaginal technique. Bladder is collapsed. Uterus measures 8.8 x 3.9 x 5.6 cm. Endometrial thickness is 4 mm. There is no endometrial fluid collection. The ovaries are normal in size and echotexture, right ovary measuring 3.6 x 2.6 x 3.0 cm and left ovary 3.0 x 2.1 x 3.0 cm. There is no adnexal mass. There is no free fluid. There is no evidence of ovarian torsion. IMPRESSION: Negative pelvic ultrasound. Signed by John Pollock MD 04/18/2017 07:46 P
[2017-04-18 14:51] VITALS: BP 120/78
[2017-04-18] MEDS ORDERED: METR1TAB66 PO (14:57)
== END 2017-04-18 15:06 | disposition home or self-care (01) ==
LOC: M ED 11:28
DX: S76.011A Strain of muscle, fascia and tendon of right hip, initial encounter (principal); N76.0 Acute vaginitis; N39.0 Urinary tract infection, site not specified; Z87.891 Personal history of nicotine dependence; X58.XXXA Exposure to other specified factors, initial encounter; Y92.89 Other specified places as the place of occurrence of the external cause; Y93.89 Activity, other specified; Y99.9 Unspecified external cause status

== ENCOUNTER 2017-04-23 11:06 | Emergency (ER) | payer OTHER ==
[~2017-04-23] VITALS: Ht 172.7 cm; Wt 78.2 kg
[~2017-04-23 11:06] MED LIST changes: +BACT800T5 PO; +METR1TAB66 PO; +TYLE500T78 PO
[2017-04-23] MEDS ORDERED: MEDR150I12 (11:17)
[2017-04-23] MEDS ORDERED: cefTRIAXone SOD 250 MG VIAL (J0696) IM ONE (13:30)
[2017-04-23] MEDS ORDERED: AZITHROMYCIN 250 MG TAB PO ONE (13:30)
[2017-04-23] MEDS ORDERED: LIDOCAINE 1% MDV 20ML VIAL As Ordered ONE (13:39)
[2017-04-23 14:07] VITALS: BP 144/84
== END 2017-04-23 14:08 | disposition home or self-care (01) ==
LOC: M ED 11:06
DX: A56.8 Sexually transmitted chlamydial infection of other sites (principal)
CPT/HCPCS: 90471; 99283; J0696

== ENCOUNTER → 2017-06-22 | Outpatient (CLI) | payer OTHER | LOC: M WUC 09:46 | DX: N76.0 Acute vaginitis (principal); Z11.3 Encounter for screening for infections with a predominantly sexual mode of transmission | CPT/HCPCS: 86695 ==

== ENCOUNTER 2017-12-01 23:07 | Emergency (ER) | payer OTHER ==
[2017-12-02 01:00] LABS: KETONE, URINE AUTO RFX NEGATIVE (NEGATIVE); MUCUS, URINE RFX MODERATE (NEGATIVE); NITRITE, URINE AUTO RFX NEGATIVE (NEGATIVE); RBC, URINE AUTO RFX 8 /HPF (0-3); SPECIFIC GRAVITY UR AUTO RFX 1.032 (1.002-1.035); SQUAM EPITHELIAL CELL UR AURFX 7 /HPF (0-6)
[2017-12-02 01:01] LABS: LEUKOCYTE ESTERASE UR AUTO RFX 3+ (NEGATIVE); WBC, URINE AUTO RFX 34 /HPF (0-3)
[2017-12-02] MEDS: metroNIDAZOLE (FLAGYL) 500 MG TAB PO (01:46)
[2017-12-02 02:28] LABS: CHLAMYDIA DNA AMPLIFICATION NEGATIVE (NEGATIVE); GC DNA AMPLIFICATION NEGATIVE (NEGATIVE)
== END 2017-12-02 01:58 | disposition home or self-care (01) ==
LOC: M ED 23:07
DX: N76.0 Acute vaginitis (principal); A60.09 Herpesviral infection of other urogenital tract; Z91.013 Allergy to seafood; Z88.8 Allergy status to other drugs, medicaments and biological substances
CPT/HCPCS: 81001

== ENCOUNTER → 2017-12-24 | Outpatient (REF) | payer OTHER, SELFPAY | LOC: M LAB REF 19:17 | DX: R30.0 Dysuria (principal) | CPT/HCPCS: 87186 ==

== ENCOUNTER 2018-02-19 17:53 | Emergency (ER) | payer SELFPAY ==
[2018-02-19 18:23] LABS: BASO % 0.5 % (0.0-1.0); EOS % 0.5 % (0.0-3.0); HEMATOCRIT 36.4 % (36.0-47.0); HEMOGLOBIN 12.3 g/dl (12.0-15.5); IMMATURE GRANULOCYTE % 0.1 % (0-3.0); LYMPH # 3.8 10^3/uL (1.5-6.5); LYMPH % 50.1 % (24.0-44.0); MEAN CORPUSCULAR HEMOGLOBIN 32.9 pg (27.0-33.0); MEAN CORPUSCULAR HGB CONC 33.8 g/dl (32.0-36.5); MEAN CORPUSCULAR VOLUME 97.3 fl (80.0-96.0); MONO # 0.6 10^3/uL (0.0-0.8); MONO % 7.2 % (0.0-5.0); NEUTROPHILS # 3.2 10^3/uL (1.8-7.7); NEUTROPHILS % 41.6 % (36.0-66.0); PLATELET COUNT, AUTOMATED 209 10^3/uL (150-450); RED BLOOD COUNT 3.74 10^6/uL (4.00-5.40); RED CELL DISTRIBUTION WIDTH 12.2 % (11.5-14.5); WHITE BLOOD COUNT 7.6 10^3/uL (4.0-10.0)
[2018-02-19 18:42] LABS: CONTROL LINE HCG INT CTR LINE PRESENT; HCG, SERUM QUALITATIVE NEGATIVE (NEGATIVE)
[2018-02-19 18:49] LABS: ALBUMIN 3.8 GM/DL (3.2-5.2); ALBUMIN/GLOBULIN RATIO 1.15 (1.00-1.93); ALKALINE PHOSPHATASE 59 U/L (45-117); ALT/SGPT 15 U/L (12-78); ANION GAP 11 MEQ/L (8-16); AST/SGOT 10 U/L (7-37); BILIRUBIN,DIRECT 0.2 MG/DL (0.0-0.2); BILIRUBIN,TOTAL 0.5 MG/DL (0.2-1.0); BLOOD UREA NITROGEN 9 MG/DL (7-18); CALCIUM LEVEL 8.9 MG/DL (8.5-10.1); CARBON DIOXIDE LEVEL 23 MEQ/L (21-32); CHLORIDE LEVEL 108 MEQ/L (98-107); CPK CREATINE PHOSPHOKINASE 82 U/L (26-192); CREATININE FOR GFR 0.79 MG/DL (0.55-1.30); ETHYL ALCOHOL (ETHANOL) 0.009 % (0.000-0.010); GLOMERULAR FILTRATION RATE > 60.0 (>60); GLUCOSE, FASTING 76 MG/DL (70-100); POTASSIUM SERUM 3.6 MEQ/L (3.5-5.1); SODIUM LEVEL 142 MEQ/L (136-145); THYROID STIMULATING HORMONE 0.818 uIU/ML (0.358-3.740); TOTAL PROTEIN 7.1 GM/DL (6.4-8.2)
[2018-02-19 19:11] LABS: ACETAMINOPHEN LEVEL < 2.0 UG/ML (10.0-30.0)
== END 2018-02-19 20:00 | disposition home or self-care (01) ==
LOC: M ED 17:53
DX: G40.909 Epilepsy, unspecified, not intractable, without status epilepticus (principal); R94.31 Abnormal electrocardiogram [ECG] [EKG]; I44.7 Left bundle-branch block, unspecified
CPT/HCPCS: 93005